=== PATIENT | female | born 1940 | race Caucasian/White ===

== ENCOUNTER → 2016-10-07 | Outpatient (CLI) | payer MEDICARE ==
--- NOTE | 2016-10-07 22:36 | MR ---
EXAMINATION TYPE: MR lumbar spine wo con DATE OF EXAM: 10/07/2016 7:26 PM COMPARISON: NONE HISTORY: Radiculopathy, lumbar region per order. Scoliosis with left thigh and calf pain for a few ye ars per patient. TECHNIQUE: Multiplanar, multisequence imaging of the lumbar spine is performed without IV contrast. FINDINGS: There is dextroconvex scoliosis centered at L2-L3 level. Sagittal images of the lumbar spin e show vertebral body heights to appear satisfactory. There is multilevel disc desiccation with mild to moderate disc space narrowing. There are multilevel small posterior disc herniations on sagittal i mages throughout the lumbar spine. The conus medullaris is normal in position and signal ending at pineda perior L1 vertebral body level. The bone marrow signal intensity is within normal limits. There is m ild to moderate multilevel anterior spurring. Axial images show the T12-L1 level to appear within normal limits. Axial images at the L1-L2 level show moderate broad disc bulge with posterior spurring effacing anter ior thecal sac on axial image 22. Bilateral neural foramina are felt patent. Axial images at L2-L3 level show moderate broad disc bulge effacing anterior thecal sac on axial imag e 17. There is mild facet degenerative changes seen bilaterally effacing the posterior lateral thecal sac. There is some marginal spurring contributing to mild left-sided neural foraminal narrowing. Rig ht-sided neural foramen is patent. Axial images at the L3-L4 level show moderate broad disc bulge effacing the anterior thecal sac. Ther e is mild facet degenerative changes and ligamentum flavum hypertrophy effacing the posterior lateral thecal sac. There is moderate left anterior inferior neural foraminal narrowing identified. Right-si ded neural foramen is patent. Axial images at L4-L5 level show subtle spondylolisthesis or grade 1 anterolisthesis of L4 on L5 with broad-based posterior disc protrusion effacing anterior thecal sac on axial image 8. There is modera te right greater than left facet degenerative changes and ligament flavum hypertrophy effacing the po sterior lateral thecal sac. There is mild to moderate left-sided anterior inferior neural foraminal n arrowing and moderate right-sided anterior inferior neural foraminal narrowing encroaching along infe rior margin of right L4 nerve on sagittal image 14. Axial images at L5-S1 level show mild facet degenerative changes bilaterally. There is broad-based ce ntral disc protrusion mildly effacing the anterior thecal sac. There is mild to moderate right-sided anterior inferior neural foraminal narrowing encroaching along inferior margin of right L5 nerve on s agittal images 12 and 13. Left-sided neural foramen is patent. A thin-walled 1.4 cm cystic lesion in right periaortic level on axial image 29 is uncertain etiology favored benign. There are some simple appearing cysts lower pole level right kidney on axial image 9. IMPRESSION: Dextroconvex scoliosis with multilevel degenerative changes in the lumbar spine seen as d etailed above
== END | disposition home or self-care (01) ==
LOC: RADMRIMAIN 18:40
PROVIDERS: ATTEND Family Medicine
DX: M51.16 Intervertebral disc disorders with radiculopathy, lumbar region (principal); M41.9 Scoliosis, unspecified
CPT/HCPCS: 72148

== ENCOUNTER → 2016-10-09 | Outpatient (CLI) | payer MEDICARE ==
--- NOTE | 2016-10-16 14:46 | P.ARTDOP ---
Arterial Doppler LOWER EXTREMITY ARTERIAL DOPPLER: DATE OF SERVICE: 10/09/2016 Reason for study: Left leg pain. Doppler waveforms: Multiphasic bilaterally throughout. Pulse volume recording: Normal configuration. Pressure gradients: None. Ankle-brachial indices: Greater than 1 bilaterally. Impression: Normal study.
== END | disposition home or self-care (01) ==
LOC: RADUSWWP 14:04
PROVIDERS: ATTEND Family Medicine
DX: M79.605 Pain in left leg (principal)
CPT/HCPCS: 93923

== ENCOUNTER → 2018-06-23 | Outpatient (CLI) | payer MEDICARE ==
--- NOTE | 2018-06-25 08:31 | MM ---
Reason for exam: screening (asymptomatic). Last mammogram was performed 1 year and 1 month ago. History: Patient is postmenopausal. Family history of breast cancer in sister at age 78. Physical Findings: A clinical breast exam by your physician is recommended on an annual basis and results should be correlated with mammographic findings. MG Screening Mammo w CAD Bilateral CC and MLO view(s) were taken. Prior study comparison: May 23, 2017, bilateral MG 3d screening mammo w/cad. April 12, 2016, bilateral MG screening mammo w CAD. The breast tissue is heterogeneously dense. This may lower the sensitivity of mammography. Stable benign secretory calcifications right lateral breast. No significant changes when compared with prior studies. ASSESSMENT: Negative, BI-RAD 1 RECOMMENDATION: Routine screening mammogram of the right breast in 1 year.
== END | disposition home or self-care (01) ==
LOC: RADMAMWWP 14:27
PROVIDERS: ATTEND Family Medicine
DX: Z12.31 Encounter for screening mammogram for malignant neoplasm of breast (principal)
CPT/HCPCS: 77067

== ENCOUNTER 2018-08-26 14:23 | Emergency (ER) | payer MEDICARE ==
[2018-08-26 14:33] VITALS: BP 175/80; PULSE 82; RESP 16; TEMP 97.5
--- NOTE | 2018-08-26 14:47 | ED ---
General Adult HPI <Gómez Parson - Last Filed: 08/26/18 15:47> - General Source: patient, RN notes reviewed Mode of arrival: wheelchair Limitations: no limitations <Nida Cam - Last Filed: 08/26/18 20:25> - General Chief complaint: Extremity Injury, Lower Stated complaint: foot injury Time Seen by Provider: 08/26/18 14:33 - History of Present Illness Initial comments: Patient is a 77-year-old female who presents the emergency department with complaint of right foot pain that happened about 2 hours ago. Patient reported that she stood up from a chair and rolled her foot. She reports being able to walk, but that it was painful. Denies head injury or loss of consciousness. Denies any other injury. Denies any possibility of . Patient denies any recent fever, chills, shortness of breath, chest pain, back pain, abdominal pain, nausea or vomiting, numbness or tingling, headaches or visual changes, or any other complaints. (Nida Cam) - Related Data Home Medications Medication Instructions Recorded Confirmed Acetaminophen Tab [Tylenol Tab] 650 mg PO Q6H PRN 01/05/15 01/09/15 Aspirin 81 mg PO DAILY 01/05/15 01/09/15 Calcium Carbonate/Vitamin D3 1 each PO DAILY 01/05/15 01/09/15 [Calcium 600 + Vit D Tablet] Multivitamins, Thera [Theragran] 1 each PO DAILY 01/05/15 01/09/15 Previous Rx's Medication Instructions Recorded Lidocaine [Lidoderm 5% Patch] 1 patch TRANSDERM DAILY PRN #7 08/26/18 patch Allergies Allergy/AdvReac Type Severity Reaction Status Date / Time cold Allergy HIVES AND Uncoded 08/26/18 14:32 TEMPERATURE DROPS Review of Systems ROS Other: All systems not noted in ROS Statement are negative. <Gómez Parson - Last Filed: 08/26/18 15:47> ROS Other: All systems not noted in ROS Statement are negative. <Nida Cam - Last Filed: 08/26/18 20:25> ROS Statement: Those systems with pertinent positive or pertinent negative responses have been documented in the HPI. Past Medical History Past Medical History: CVA/TIA, Osteoarthritis (OA) Additional Past Medical History / Comment(s): HAS CHRONIC MICROSCOPIC BLOOD IN UA History of Any Multi-Drug Resistant Organisms: None Reported Past Surgical History: Appendectomy, Cholecystectomy, Ear Surgery Past Anesthesia/Blood Transfusion Reactions: No Reported Reaction Past Psychological History: No Psychological Hx Reported Smoking Status: Current every day smoker Past Alcohol Use History: None Reported Past Drug Use History: None Reported - Past Family History Sister(s) Family Medical History: Cancer Additional Family Medical History / Comment(s): BONE,OVARIAN Father Family Medical History: CVA/TIA Brother(s) Family Medical History: Cancer Additional Family Medical History / Comment(s): PROSTATE <Nida Cam - Last Filed: 08/26/18 20:25> General Exam Limitations: no limitations General appearance: alert, in no apparent distress Eye exam: Present: normal appearance Respiratory exam: Present: normal lung sounds bilaterally. Absent: wheezes, rales, rhonchi Cardiovascular Exam: Present: regular rate, normal rhythm Extremities exam: Present: full ROM, tenderness (Right foot.), normal capillary refill, other (DP and PT pulses are palpable and strong bilaterally.) Neurological exam: Present: alert, oriented X3 Skin exam: Present: warm, dry <Nida Cam - Last Filed: 08/26/18 20:25> Course <Gómez Parson - Last Filed: 08/26/18 15:47> <Nida Cam - Last Filed: 08/26/18 20:25> Vital Signs 08/26/18 14:30 Temperature 97.5 F L Pulse Rate 82 Respiratory 16 Rate Blood Pressure 175/80 O2 Sat by Pulse 99 Oximetry - Reevaluation(s) Reevaluation #1: 08/26/18 15:47 PA supervision: I proceeded [id number] evaluation the patient did discuss findings with her. Exam demonstrates evidence of a sprain the dorsal mid lateral aspect of the foot x-ray show no evidence of fracture I do agree with the assessment and plan. Patient is restricted from using Tylenol or NSAID products to her kidney function she is and has been drinking more fluids. I did recommend a Lidoderm patch. She does have at home. (Gómez Parson ) Medical Decision Making <Gómez Parson - Last Filed: 08/26/18 15:47> <Nida Cam Last Filed: 08/26/18 20:25> - Medical Decision Making X-ray of the right foot reveals no acute fracture or dislocation. Case discussed in detail with attending physician Dr. Parson. (Nida Cam) Disposition <Gómez Parson - Last Filed: 08/26/18 15:47> Is patient prescribed a controlled substance at d/c from ED?: No Time of Disposition: 15:46 <Nida Cam - Last Filed: 08/26/18 20:25> Clinical Impression: Foot sprain Disposition: HOME SELF-CARE Condition: Good Instructions (If sedation given, give patient instructions): Foot Sprain (ED) Additional Instructions: Follow-up with your PCP in 1 to 2 days. Return to the emergency department if symptoms worsen or other concerns. Prescriptions: Lidocaine [Lidoderm 5% Patch] 1 patch TRANSDERM DAILY PRN #7 patch PRN Reason: Pain Referrals: Conor Blood DO [Primary Care Provider] - 1-2 days
[2018-08-26] MEDS ORDERED: MORPHINE SULFATE 4 MG/ML SYRINGE IV STA (15:12)
--- NOTE | 2018-08-26 15:21 | XR ---
EXAMINATION TYPE: XR foot complete RT DATE OF EXAM: 08/26/2018 COMPARISON: NONE HISTORY: 77-year-old female with pain TECHNIQUE: 3 views FINDINGS: Incidental Suero's toe. Small plantar calcaneal spur. Small delineation to the Achilles tendon. No a cute fracture, subluxation, or dislocation is seen. IMPRESSION: Suero's toe. Small plantar calcaneal spur. No acute osseous abnormality seen.
[2018-08-26] MEDS ORDERED: MORPHINE SULFATE 2 MG/ML SYRINGE IM STA (15:59)
== END 2018-08-26 16:05 | disposition home or self-care (01) ==
LOC: EC 14:23
DX: S93.601A Unspecified sprain of right foot, initial encounter (principal); F17.200 Nicotine dependence, unspecified, uncomplicated; Z86.73 Personal history of transient ischemic attack (TIA), and cerebral infarction without residual deficits; Z90.49 Acquired absence of other specified parts of digestive tract; Z79.82 Long term (current) use of aspirin; Z91.048 Other nonmedicinal substance allergy status; X50.1XXA Overexertion from prolonged static or awkward postures, initial encounter; W18.39XA Other fall on same level, initial encounter
CPT/HCPCS: 99283

== ENCOUNTER → 2018-12-25 | Outpatient (CLI) | payer MEDICARE ==
--- NOTE | 2018-12-25 08:06 | US ---
EXAMINATION TYPE: US abdomen comp/pelvis limited DATE OF EXAM: 12/25/2018 COMPARISON: US 2010 CLINICAL HISTORY: N18.3 chronic kidney disease, stage 3; ectatic aorta; gallbladder surgically remove d EXAM MEASUREMENTS: Liver Length: 12.0 cm Gallbladder Wall: surgically removed CBD: 0.5 cm Spleen: 7.6 cm Right Kidney: 9.7 x 5.9 x 3.5 cm Left Kidney: 9.1 x 5.2 x 4.6 cm Post Void Residual: 1.6 mL Pancreas: wnl Liver: wnl Gallbladder: surgically absent CBD: wnl Spleen: wnl Right Kidney: multiple renal cysts with largest simple cyst inferior cortex = 2.2 x 2.1 x 2.1cm Left Kidney: No hydronephrosis or masses seen and was scanned supinely. Upper IVC: wnl Abd Aorta: irregular intimal wall changes noted throughout with widening at mid distal aorta =3.0 x 3.1 x 3.1cm Bladder: wnl Bilateral Jets Seen yes Normal Post Void Residual (normal less than 50ml) yes Visualized pancreas appears within normal limits. There is aneurysm of the mid abdominal aorta now me asuring up to 3.0 cm AP diameter increased from 2010 study, distal abdominal aorta measures up to 3.1 cm transversely also increased from prior. 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 Visualized liver is felt within normal limits. Right kidney shows simple appearing 2.1 cm cyst lower pole level and few s maller scattered cysts. Gallbladder is surgically absent. Bladder shows no intraluminal mass or wall thickening. Bilateral distal ureteric jets are seen. Patient nearly completely empties the bladder on voiding. Spleen is normal in size. Left kidney shows no hydronephrosis. IMPRESSION: No hydronephrosis is evident bilaterally. AAA up to 3.1 cm transversely distal aspect is now present.
== END | disposition home or self-care (01) ==
LOC: RADUSWWP 06:52
PROVIDERS: ATTEND Family Medicine
DX: I71.4 Abdominal aortic aneurysm, without rupture (principal); N18.3 Chronic kidney disease, stage 3 (moderate)
CPT/HCPCS: 76700; 76857

== ENCOUNTER → 2019-07-16 | Outpatient (CLI) | payer MEDICARE ==
--- NOTE | 2019-07-23 09:51 | MM ---
Reason for exam: screening (asymptomatic). Last mammogram was performed 1 year and 1 month ago. History: Patient is postmenopausal. Family history of breast cancer in sister at age 78. Physical Findings: A clinical breast exam by your physician is recommended on an annual basis and results should be correlated with mammographic findings. MG 3D Screening Mammo W/Cad Bilateral CC and MLO view(s) were taken. Prior study comparison: June 23, 2018, bilateral MG screening mammo w CAD. May 23, 2017, bilateral MG 3d screening mammo w/cad. The breast tissue is heterogeneously dense. This may lower the sensitivity of mammography. Stable benign secretory calcifications on the right. No significant changes when compared with prior studies. ASSESSMENT: Benign, BI-RAD 2 RECOMMENDATION: Routine screening mammogram of both breasts in 1 year.
== END | disposition home or self-care (01) ==
LOC: RADMAMWWP 16:41
PROVIDERS: ATTEND Family Medicine
DX: Z12.31 Encounter for screening mammogram for malignant neoplasm of breast (principal)
CPT/HCPCS: 77063; 77067

== ENCOUNTER 2020-09-14 09:26 | Day surgery (SDC) | payer MEDICARE ==
[2020-09-13 12:51] VITALS: BMI 18.4
[~2020-09-14 09:26] MED LIST: LACTATED RINGERS 1,000 ML IV SCH
[2020-09-14 09:48] VITALS: RESP 16; TEMP 97.5
[2020-09-14] MEDS ORDERED: PROPOFOL 10 MG/ML 20 ML VIAL IV ONE (10:54)
--- NOTE | 2020-09-14 11:15 | P.PCN ---
Date of Procedure: 09/14/20 Procedure(s) Performed: BRIEF HISTORY: Patient is a 79-year-old pleasant white female scheduled for an elective colonoscopy as a part of evaluation of chronic diarrhea for the last 2 months duration. She lost 90 pounds since his symptoms. She usually has 3-4 loose bowel movements daily. No active bleeding. PROCEDURE PERFORMED: Colonoscopy with random biopsies and snare polypectomy. PREOPERATIVE DIAGNOSIS: Chronic diarrhea and progressive weight loss of 3 months duration. IV sedation per Anesthesia. PROCEDURE: After informed consent was obtained, the patient, was brought into the endoscopy unit. IV sedation was administered by Anesthesia under continuous monitoring. Digital rectal examination was normal. Initially the Olympus CF-160 flexible video colonoscope was then inserted in the rectum, gradually advanced into the cecum without any difficulty. Careful examination was performed as the scope was gradually being withdrawn. Ileocecal valve and the appendiceal orifice were visualized and appeared normal. Prep was excellent. Mucosa of the cecum, ascending colon, transverse colon, descending colon, sigmoid colon, appeared normal. Random biopsies were done from ascending and descending colon to rule out microscopic/collagenous colitis. In the distal rectum there were 2 polyps m easuring 5 mm and 1 cm in size both of which were removed by snare polypectomy. Retroflexion was performed in the rectum and no lesions were seen. The patient tolerated the procedure well. IMPRESSION: 5 mm and 1 cm distal rectal polyp status post polypectomy Rest of the colon appeared normal RECOMMENDATIONS: Findings of this examination were discussed with the patient as well as a family. She was advised to follow with the biopsy results. If the biopsy shows an adenoma she can have a repeat colonoscopy in 3 years. In regards to the diarrhea will await biopsy results in the meantime she was advised to use [id number] Imodium as needed..
[2020-09-14 11:54] VITALS: BP 168/72; PULSE 86
== END 2020-09-14 12:18 | disposition home or self-care (01) ==
LOC: ORWHC2ENDO 09:26
PROVIDERS: ATTEND Internal Medicine Gastroenterology
DX: K52.832 Lymphocytic colitis (principal); K62.1 Rectal polyp; N18.9 Chronic kidney disease, unspecified; M19.90 Unspecified osteoarthritis, unspecified site; Z97.2 Presence of dental prosthetic device (complete) (partial); Z91.09 Other allergy status, other than to drugs and biological substances; Z86.73 Personal history of transient ischemic attack (TIA), and cerebral infarction without residual deficits; Z79.899 Other long term (current) drug therapy; Z79.82 Long term (current) use of aspirin; Z87.898 Personal history of other specified conditions
CPT/HCPCS: 88305; 45380; 45385; J2704

== ENCOUNTER → 2020-09-19 | Outpatient (CLI) | payer MEDICARE ==
--- NOTE | 2020-09-19 15:59 | US ---
EXAMINATION TYPE: US kidneys/renal and bladder DATE OF EXAM: 09/19/2020 COMPARISON: US CLINICAL HISTORY: N18.3 chronic kidney disease stage 3. CKD EXAM MEASUREMENTS: Right Kidney: 10.6 x 3.4 x 4.2 cm Left Kidney: 8.5 x 3.9 x 4.2 cm Post Void Residual Volume: 40 mL Right Kidney: Multicystic, largest cyst measured lower pole= 2.3 x 2.6 x 2.6 cm Left Kidney: Small in size, cortical thinning Bladder: wnl Bilateral Jets seen: Only right jet visualized Normal Post Void Residual: Yes There is no evidence for hydronephrosis at this point in time. Increased cortical echogenicity bilate rally. No nephrolithiasis is seen. There is 2.6 cm thin-walled cyst lower pole of the right kidney. The urinary bladder is satisfactorily distended. Bilateral ureteral jets are not seen. IMPRESSION: No hydronephrosis is seen bilaterally.
== END | disposition home or self-care (01) ==
LOC: RADUSWWP 15:22
PROVIDERS: ATTEND Family Medicine
DX: N18.30 Chronic kidney disease, stage 3 unspecified (principal)
CPT/HCPCS: 76770

== ENCOUNTER 2020-10-25 10:32 | Inpatient (IN) | payer MEDICARE ==
[2020-10-25] MEDS ORDERED: NITROGLYCERIN OINT 1 INCH/GM PACKET TOPICAL STA (10:54)
[2020-10-25] MEDS ORDERED: ASPIRIN 81 MG PO STA (10:54)
--- NOTE | 2020-10-25 11:16 | XR ---
EXAMINATION TYPE: XR chest 2V DATE OF EXAM: 10/25/2020 COMPARISON: None INDICATION: Chest pain TECHNIQUE: Frontal and lateral views of the chest are obtained. FINDINGS: The heart size is normal. The pulmonary vasculature is normal. Bilateral apical thickening is present. Follow-up evaluation for stability is recommended. There is hyperinflation flattening the diaphragms compatible with COPD. IMPRESSION: 1. Bilateral lung apical thickening. Follow-up exam in 3-6 months is recommended to confirm stability over the course of 2 years. 2. Hyperinflation. Correlate for COPD
--- NOTE | 2020-10-25 11:22 | ED ---
General Adult HPI - General Chief complaint: Chest Pain Stated complaint: Chest pain/nausea/dry heaves Time Seen by Provider: 10/25/20 10:35 Source: patient, RN notes reviewed, old records reviewed Mode of arrival: ambulatory Limitations: no limitations - History of Present Illness Initial comments: This is a 79-year-old female presents emergency department stating that she felt like she had a bowel movement so she sat on the toilet and then became very nauseated started dry heaves. Patient states she broke out in a sweat and became extremely weak to the point where she could not get up off the toilet by herself. Patient states she had no chest pain difficulty breathing shortness of breath. Patient states currently she feels considerably better. Patient states however she has been having chest pain over the last week quite frequently. Pat ient states she has about a 10 minute episode of anterior chest pain which goes from shoulder to shoulder and is associated with shortness of breath. Patient denies any recent fever chills or cough. Patient denies any headache patient denies numbness or focal weakness - Related Data Home Medications Medication Instructions Recorded Confirmed Acetaminophen Tab [Tylenol Tab] 650 mg PO Q6H PRN 01/05/15 10/25/20 Aspirin 81 mg PO DAILY 01/05/15 10/25/20 Calcium Carbonate/Vitamin D3 1 tab PO DAILY 01/05/15 10/25/20 [Calcium 600 + Vit D Tablet] Multivitamins, Thera [Theragran] 1 tab PO DAILY 01/05/15 10/25/20 Cholecalciferol [Vitamin D3 (25 50 mcg PO DAILY 09/13/20 10/25/20 Mcg = 1000 Iu)] Melatonin 5 mg PO HS PRN 09/13/20 10/25/20 Allergies Allergy/AdvReac Type Severity Reaction Status Date / Time cold AdvReac HIVES AND Uncoded 10/25/20 12:42 TEMPERATURE DROPS Review of Systems ROS Statement: Those systems with pertinent positive or pertinent negative responses have been documented in the HPI. ROS Other: All systems not noted in ROS Statement are negative. Past Medical History Past Medical History: CVA/TIA, Osteoarthritis (OA) Additional Past Medical History / Comment(s): HAS CHRONIC MICROSCOPIC BLOOD IN UA, TIA , CHRONIC KIDNEY DISEASE, DR PARRA, AAA History of Any Multi-Drug Resistant Organisms: None Reported Past Surgical History: Appendectomy, Cholecystectomy, Ear Surgery Past Anesthesia/Blood Transfusion Reactions: No Reported Reaction, Motion Sickness Past Psychological History: No Psychological Hx Reported Smoking Status: Current every day smoker Past Alcohol Use History: None Reported Past Drug Use History: None Reported - Past Family History Sister(s) Family Medical History: Cancer Additional Family Medical History / Comment(s): BONE,OVARIAN Father Family Medical History: CVA/TIA Brother(s) Family Medical History: Cancer Additional Family Medical History / Comment(s): PROSTATE General Exam - General Exam Comments Initial Comments: GENERAL: Patient is well-developed and well-nourished. Patient is nontoxic and well- hydrated and is in mild distress. ENT: Neck is soft and supple. No significant lymphadenopathy is noted. Oropharynx is clear. Moist mucous membranes. Neck has full range of motion without ramos citing any pain. EYES: The sclera were anicteric and conjunctiva were pink and moist. Extraocular movements were intact and pupils were equal round and reactive to light. Eyelids were unremarkable. PULMONARY: Unlabored respirations. Good breath sounds bilaterally. No audible rales rhonchi or wheezing was noted. CARDIOVASCULAR: There is a regular rate and rhythm without any murmurs gallops or rubs. ABDOMEN: Soft and nontender with normal bowel sounds. SKIN: Skin is clear with no lesions or rashes and otherwise unremarkable. NEUROLOGIC: Patient is alert and oriented x3. Cranial nerves II through XII are grossly intact. Motor and sensory are also intact. Normal speech, volume and content. Symmetrical smile. MUSCULOSKELETAL: Normal extremities with adequate strength and full range of motion. No lower extremity swelling or edema. No calf tenderness. LYMPHATICS: No significant lymphadenopathy is noted PSYCHIATRIC: Normal psychiatric evaluation. 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 Patient's EKG shows ST segment depression in precordial leads V4 V5 and V6. Chest x-ray is consistent with COPD. I started the patient heparin because troponin was elevated and the patient was having a non-STEMI. I spoke with cardiology. I spoke with [facility] hospitalist and he agreed to admit the patient admitted the patient wrote admitting orders Second EKG was done on this patient it showed normal sinus rhythm at 86 bpm [place] interval is on a 48 QRSs 80 QT interval 394 QTC is 471. - Lab Data Result diagrams: 10/25/20 11:05 10/25/20 11:05 Lab Results 10/25/20 10/25/20 10/25/20 Range/Units 11:05 11:05 11:05 WBC 6.0 (3.8-10.6) k/uL RBC 4.24 (3.80-5.40) m/uL Hgb 14.1 (11.4-16.0) gm/dL Hct 41.9 (34.0-46.0) % MCV 99.0 (80.0-100.0) fL MCH 33.2 (25.0-35.0) pg MCHC 33.6 (31.0-37.0) g/dL RDW 12.8 (11.5-15.5) % Plt Count 179 (150-450) k/uL MPV 8.1 Neutrophils % 73 % Lymphocytes % 20 % Monocytes % 5 % Eosinophils % 0 % Basophils % 0 % Neutrophils # 4.4 (1.3-7.7) k/uL Lymphocytes # 1.2 (1.0-4.8) k/uL Monocytes # 0.3 (0-1.0) k/uL Eosinophils # 0.0 (0-0.7) k/uL Basophils # 0.0 (0-0.2) k/uL PT 9.5 (9.0-12.0) sec INR 0.9 (<1.2) APTT 19.1 L (22.0-30.0) sec Sodium 136 L (137-145) mmol/L Potassium 4.0 (3.5-5.1) mmol/L Chloride 102 (98-107) mmol/L Carbon Dioxide 25 (22-30) mmol/L Anion Gap 9 mmol/L BUN 30 H (7-17) mg/dL Creatinine 1.40 H (0.52-1.04) mg/dL Est GFR (CKD-EPI)AfAm 42 (>60 ml/min/1.73 sqM) Est GFR (CKD-EPI)NonAf 36 (>60 ml/min/1.73 sqM) Glucose 122 H (74-99) mg/dL Calcium 9.8 (8.4-10.2) mg/dL Magnesium 2.2 (1.6-2.3) mg/dL Total Bilirubin 0.5 (0.2-1.3) mg/dL AST 38 H (14-36) U/L ALT 17 (4-34) U/L Alkaline Phosphatase 89 (38-126) U/L Troponin I (0.000-0.034) ng/mL Total Protein 7.6 (6.3-8.2) g/dL Albumin 4.7 (3.5-5.0) g/dL 10/25/20 Range/Units 11:05 WBC (3.8-10.6) k/uL RBC (3.80-5.40) m/uL Hgb (11.4-16.0) gm/dL Hct (34.0-46.0) % MCV (80.0-100.0) fL MCH (25.0-35.0) pg MCHC (31.0-37.0) g/dL RDW (11.5-15.5) % Plt Count (150-450) k/uL MPV Neutrophils % % Lymphocytes % % Monocytes % % Eosinophils % % Basophils % % Neutrophils # (1.3-7.7) k/uL Lymphocytes # (1.0-4.8) k/uL Monocytes # (0-1.0) k/uL Eosinophils # (0-0.7) k/uL Basophils # (0-0.2) k/uL PT (9.0-12.0) sec INR (<1.2) APTT (22.0-30.0) sec Sodium (137-145) mmol/L Potassium (3.5-5.1) mmol/L Chloride (98-107) mmol/L Carbon Dioxide (22-30) mmol/L Anion Gap mmol/L BUN (7-17) mg/dL Creatinine (0.52-1.04) mg/dL Est GFR (CKD-EPI)AfAm (>60 ml/min/1.73 sqM) Est GFR (CKD-EPI)NonAf (>60 ml/min/1.73 sqM) Glucose (74-99) mg/dL Calcium (8.4-10.2) mg/dL Magnesium (1.6-2.3) mg/dL Total Bilirubin (0.2-1.3) mg/dL AST (14-36) U/L ALT (4-34) U/L Alkaline Phosphatase (38-126) U/L Troponin I 2.130 H* (0.000-0.034) ng/mL Total Protein (6.3-8.2) g/dL Albumin (3.5-5.0) g/dL Critical Care Time Critical Care Time: Yes Total Critical Care Time: 35 Disposition Clinical Impression: Acute non-ST elevation myocardial infarction (NSTEMI) Disposition: ADMITTED IP TO THIS HOSP Referrals: Conor Parra DO [Primary Care Provider] - 1-2 days Time of Disposition: 13:24
[2020-10-25 11:29] LABS: Basophils % (A) 0 %; Eosinophils % (A) 0 %; HCT 41.9 % (34.0-46.0); HGB 14.1 gm/dL (11.4-16.0); Lymphocytes # (A) 1.2 k/uL (1.0-4.8); Lymphocytes % (A) 20 %; MCH 33.2 pg (25.0-35.0); MCHC 33.6 g/dL (31.0-37.0); Mean Platelet Volume 8.1; Monocytes # (A) 0.3 k/uL (0-1.0); Monocytes % (A) 5 %; Neutrophils # (A) 4.4 k/uL (1.3-7.7); Neutrophils % (A) 73 %; Platelet Count 179 k/uL (150-450); RBC 4.24 m/uL (3.80-5.40); RDW 12.8 % (11.5-15.5)
[2020-10-25 11:40] LABS: Albumin 4.7 g/dL (3.5-5.0); Calcium 9.8 mg/dL (8.4-10.2); Magnesium 2.2 mg/dL (1.6-2.3); Total Bilirubin 0.5 mg/dL (0.2-1.3); Total Protein 7.6 g/dL (6.3-8.2)
[2020-10-25 11:50] LABS: INR 0.9 (<1.2); Prothrombin Time 9.5 sec (9.0-12.0)
[2020-10-25 11:57] LABS: Partial Thromboplastin Time 19.1 sec (22.0-30.0)
[2020-10-25] MEDS ORDERED: HEPARIN SODIUM,PORCINE 5,000 UNIT/ML 1 ML VIAL IV ONE (13:25)
[2020-10-25] MEDS ORDERED: NITROGLYCERIN SL TABS 0.4 MG TAB SUBLINGUAL PRN (13:26)
[2020-10-25] MEDS ORDERED: HEPARIN SOD,PORK IN 0.45% NACL 25,000 UNIT in 0.45% NACL 1 250ML.BAG IV SCH (13:30)
[2020-10-25] MEDS ORDERED: SODIUM CHLORIDE 0.9% 500 ML 500 ML IV ONE (13:34)
[2020-10-25] MEDS: SODIUM CHLORIDE 0.9% 1,000 ML IV SCH ×2 (14:06→20:58)
[2020-10-25] MEDS ORDERED: ALPRAZolam 0.25 MG TAB PO PRN (14:11)
[2020-10-25] MEDS ORDERED: ATORVASTATIN 80 MG TAB PO STA (14:11)
[2020-10-25] MEDS ORDERED: ALPRAZolam 0.5 MG TAB PO PRN (14:11)
--- NOTE | 2020-10-25 14:19 | P.HPIM ---
History of Present Illness 79-year-old pleasant female came in with compensative chest pressure like sensation on exertion which started today morning across the chest with some nausea and dry heaving and the mild diaphoresis. Patient denied any significant shortness of breath or patient pain lasted for about 10 minutes moderate across the chest showed from shoulder to shoulder denied any fever chills not associated with food nonpleuritic denied any headache. Patient is found to have some and depressions in anterio atrial leads. Patient never had any cardiac workup in the past patient had a similar episode 2 years ago patient had elevated troponin of 2.13. Cardiology is evaluating the patient. Patient has creatinine of 1.4 baseline is not available at this time. Review of Systems REVIEW OF SYSTEMS: CONSTITUTIONAL: No fever, no malaise, no fatigue. HEENT: No recent visual problems or hearing problems. Denied any sore throat. CARDIOVASCULAR: No orthopnea, PND, no palpitations, no syncope. PULMONARY: no cough, no hemoptysis. GASTROINTESTINAL: No diarrhea, no nausea, no vomiting, no abdominal pain. NEUROLOGICAL: No headaches, no weakness, no numbness. HEMATOLOGICAL: Denies any bleeding or petechiae. GENITOURINARY: Denies any burning micturition, frequency, or urgency. MUSCULOSKELETAL/RHEUMATOLOGICAL: Denies any joint pain, swelling, or any muscle pain. ENDOCRINE: Denies any polyuria or polydipsia. The rest of the 14-point review of systems is negative. Past Medical History Past Medical History: CVA/TIA, Osteoarthritis (OA) Additional Past Medical History / Comment(s): HAS CHRONIC MICROSCOPIC BLOOD IN UA, TIA , CHRONIC KIDNEY DISEASE, DR PARRA, [place] History of Any Multi-Drug Resistant Organisms: None Reported Past Surgical History: Appendectomy, Cholecystectomy, Ear Surgery Past Anesthesia/Blood Transfusion Reactions: No Reported Reaction, Motion Sickness Past Psychological History: No Psychological Hx Reported Smoking Status: Current every day smoker Past Alcohol Use History: None Reported Past Drug Use History: None Reported - Past Family History Sister(s) Family Medical History: Cancer Additional Family Medical History / Comment(s): BONE,OVARIAN Father Family Medical History: CVA/TIA Brother(s) Family Medical History: Cancer Additional Family Medical History / Comment(s): PROSTATE Medications and Allergies Home Medications Medication Instructions Recorded Confirmed Type Acetaminophen Tab [Tylenol Tab] 650 mg PO Q6H PRN 01/05/15 10/25/20 History Aspirin 81 mg PO DAILY 01/05/15 10/25/20 History Calcium Carbonate/Vitamin D3 1 tab PO DAILY 01/05/15 10/25/20 History [Calcium 600 + Vit D Tablet] Multivitamins, Thera [Theragran] 1 tab PO DAILY 01/05/15 10/25/20 History Cholecalciferol [Vitamin D3 (25 50 mcg PO DAILY 09/13/20 10/25/20 History Mcg = 1000 Iu)] Melatonin 5 mg PO HS PRN 09/13/20 10/25/20 History Allergies Allergy/AdvReac Type Severity Reaction Status Date / Time cold AdvReac HIVES AND Uncoded 10/25/20 12:42 TEMPERATURE DROPS Physical Exam Vitals: Vital Signs Temp Pulse Pulse Resp BP Pulse Ox 10/25/20 12:37 89 16 142/72 99 10/25/20 11:16 86 18 146/76 97 10/25/20 10:49 89 16 10/25/20 10:35 98.0 F 103 H 16 151/76 99 Intake and Output 10/24/20 10/25/20 10/25/20 22:59 06:59 14:59 Other: Weight 46.266 kg PHYSICAL EXAMINATION: GENERAL: The patient is alert and oriented x3, not in any acute distress. Thin built female HEENT: Pupils are round and equally reacting to light. EOMI. No scleral icterus. No conjunctival pallor. Normocephalic, atraumatic. No pharyngeal erythema. No thyromegaly. CARDIOVASCULAR: S1 and S2 present. No murmurs, rubs, or gallops. PULMONARY: Chest is clear to auscultation, no wheezing or crackles. ABDOMEN: Soft, nontender, nondistended, normoactive bowel sounds. No palpable organomegaly. MUSCULOSKELETAL: No joint swelling or deformity. EXTREMITIES: No cyanosis, clubbing, or pedal edema. NEUROLOGICAL: Gross neurological examination did not reveal any focal deficits. SKIN: No rashes. Results CBC & Chem 7: 10/25/20 11:05 10/25/20 11:05 Labs: Abnormal Lab Results - Last 24 Hours (Table) 10/25/20 10/25/20 10/25/20 Range/Units 11:05 11:05 11:05 APTT 19.1 L (22.0-30.0) sec Sodium 136 L (137-145) mmol/L BUN 30 H (7-17) mg/dL Creatinine 1.40 H (0.52-1.04) mg/dL Glucose 122 H (74-99) mg/dL AST 38 H (14-36) U/L Troponin I 2.130 H* (0.000-0.034) ng/mL Assessment and Plan Plan: Acute non-ST elevation myocardial infarction: Patient was IV heparin patient will be ordered by cardiology patient probably will undergo cardiac catheterization either today or tomorrow. lipid panel will be obtained. Patient was started on statin and antiplatelet medications as well. -Renal failure unknown whether patient has acute renal failure chronic kidney disease baseline is not available. She was onIVfluids - nicotine use: Counseling was provided
[2020-10-25] MEDS ORDERED: LIDOCAINE 1% INJ 10MG/ML (20 ML MDV) ONE (14:20)
--- NOTE | 2020-10-25 14:25 | P.CRDCN ---
History of Present Illness History of present illness: HISTORY OF PRESENTING ILLNESS This is a pleasant 79-year-old female past medical history significant for chronic kidney disease and chronic nicotine dependence. 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 We have been asked to see in consultation for chest pain and abnormal troponins. She states for the previous one and half week she has been experiencing intermittent episodes of chest tightness. The discomfort has happened about 5 or 6 times intermittently with nonspecific aggravating factor. She states it occurs while she is sitting down at rest. It radiates across her chest from left to right axilla. It last for approximately 5 minutes and subsides on its own. There is no radiation to the arm, back, neck or jaw. She has no associated symptoms and she has the chest tightness. Also in the previous couple of days she has had 2 episodes where she becomes dizzy. Specifically this morning she woke up and was starting to get ready for work when she started becoming acutely lightheaded and weak. She was in the bathroom and had to sit down and leaning on the counter. She states she was so weak that she felt like she needed to sit down on the floor. She became extremely diaphoretic and nauseated. During this episode she had no specific symptoms of chest discomfort or palpitations. Her granddaughter assisted her to the couch where she lay down and slept for a couple of hours. She woke up the patient wanted to continue with [employer] go to work however her granddaughter insisted she: In the hospital for evaluation. She is currently chest pain-free. DIAGNOSTICS EKG reveals sinus mechanism heart rate of [address] abnormalities noted in the anterior lateral leads. Chest xray bilateral apical lung thickening and hyperinflation. Laboratory reviewed, CBC unremarkable, sodium 136, potassium 4.0, creatinine 1.4 with GFR of 36, magnesium 2.2 and troponin 2.13. She takes no daily prescription cardiac medications. She takes a daily aspirin 81 mg. She has never had a stress test or echocardiogram before. REVIEW OF SYSTEMS At the time of my exam: CONSTITUTIONAL: Denies fever or chills. CARDIOVASCULAR: Denies chest pain, shortness of breath, orthopnea, PND or palpitations. RESPIRATORY: Denies cough. GASTROINTESTINAL: Denies abdominal pain, diarrhea, constipation, nausea or vomiting. MUSCULOSKELETAL: Denies myalgias. NEUROLOGIC: Denies numbness, tingling, headacbe or weakness. ENDOCRINE: Denies fatigue, weight change, polydipsia or polyurina. GENITOURINARY: Denies burning, hematuria or urgency with micturation. HEMATOLOGIC: Denies history of anemia or bleeding. PHYSICAL EXAMINATION Blood pressure 142/72 heart rate 89 afebrile and maintaining oxygen saturation on room air. CONSTITUTIONAL: No apparent distress. Frail. HEENT: Head is normocephalic. Pupils are equal, round. Sclerae anicteric. Mucous membranes of the mouth are moist. No JVD. Bilateral carotid bruit, R>L. CHEST EXAMINATION: Lungs are clear to auscultation. No chest wall tenderness is noted on palpation or with deep breathing. HEART EXAMINATION: Regular rate and rhythm. S1, S2 heard. Systolic ejection murmur at the base, no gallops or rub. ABDOMEN: Soft, nontender. Positive bowel sounds. EXTREMITIES: 2+ peripheral pulses, no lower extremity edema and no calf tenderness. NEUROLOGIC EXAMINATION: Patient is awake, alert and oriented x3. ASSESSMENT NSTEMI Possible arrhythmia Chronic kidney disease Chronic nicotine dependence PLAN Recommend proceeding with cardiac catheterization to assess for underlying coronary artery disease. I have discussed the risks, benefits and alternative therapies for the above-mentioned procedure and for both sedation/analgesia as well as necessary blood product administration, if indicated, as they pertain to this patient. The patient has indicated understanding and acceptance of the risks and procedures discussed. Questions have been answered appropriately and she is agreeable to move forward with the above stated procedure. Initiate hydration prior to procedure. Obtain 2D echocardiogram and doppler study to assess cardiac structure and funct ion. Check lipid panel. Further recommendations to follow based on clinical course. Thank you kindly for this consultation. Nurse Practitioner note has been reviewed, I agree with a documented findings and plan of care. Patient was seen and examined. Past Medical History Past Medical History: CVA/TIA, Osteoarthritis (OA) Additional Past Medical History / Comment(s): HAS CHRONIC MICROSCOPIC BLOOD IN UA, TIA , CHRONIC KIDNEY DISEASE, DR PARRA, [place] History of Any Multi-Drug Resistant Organisms: None Reported Past Surgical History: Appendectomy, Cholecystectomy, Ear Surgery Past Anesthesia/Blood Transfusion Reactions: No Reported Reaction, Motion Sickness Past Psychological History: No Psychological Hx Reported Smoking Status: Current every day smoker Past Alcohol Use History: None Reported Past Drug Use History: None Reported - Past Family History Sister(s) Family Medical History: Cancer Additional Family Medical History / Comment(s): BONE,OVARIAN Father Family Medical History: CVA/TIA Brother(s) Family Medical History: Cancer Additional Family Medical History / Comment(s): PROSTATE Medications and Allergies Home Medications Medication Instructions Recorded Confirmed Type Acetaminophen Tab [Tylenol Tab] 650 mg PO Q6H PRN 01/05/15 10/25/20 History Aspirin 81 mg PO DAILY 01/05/15 10/25/20 History Calcium Carbonate/Vitamin D3 1 tab PO DAILY 01/05/15 10/25/20 History [Calcium 600 + Vit D Tablet] Multivitamins, Thera [Theragran] 1 tab PO DAILY 01/05/15 10/25/20 History Cholecalciferol [Vitamin D3 (25 50 mcg PO DAILY 09/13/20 10/25/20 History Mcg = 1000 Iu)] Melatonin 5 mg PO HS PRN 09/13/20 10/25/20 History Allergies Allergy/AdvReac Type Severity Reaction Status Date / Time cold AdvReac HIVES AND Uncoded 10/25/20 12:42 TEMPERATURE DROPS Physical Exam Vitals: Vital Signs Temp Pulse Pulse Resp BP Pulse Ox 10/25/20 12:37 89 16 142/72 99 10/25/20 11:16 86 18 146/76 97 10/25/20 10:49 89 16 10/25/20 10:35 98.0 F 103 H 16 151/76 99 Intake and Output 10/24/20 10/25/20 10/25/20 22:59 06:59 14:59 Other: Weight 46.266 kg Results 10/25/20 11:05 10/25/20 11:05 Cardiac Enzymes 10/25/20 10/25/20 Range/Units 11:05 11:05 AST 38 H (14-36) U/L Troponin I 2.130 H* (0.000-0.034) ng/mL Coagulation 10/25/20 Range/Units 11:05 PT 9.5 (9.0-12.0) sec APTT 19.1 L (22.0-30.0) sec CBC 10/25/20 Range/Units 11:05 WBC 6.0 (3.8-10.6) k/uL RBC 4.24 (3.80-5.40) m/uL Hgb 14.1 (11.4-16.0) gm/dL Hct 41.9 (34.0-46.0) % Plt Count 179 (150-450) k/uL Comprehensive Metabolic Panel 10/25/20 Range/Units 11:05 Sodium 136 L (137-145) mmol/L Potassium 4.0 (3.5-5.1) mmol/L Chloride 102 (98-107) mmol/L Carbon Dioxide 25 (22-30) mmol/L BUN 30 H (7-17) mg/dL Creatinine 1.40 H (0.52-1.04) mg/dL Glucose 122 H (74-99) mg/dL Calcium 9.8 (8.4-10.2) mg/dL AST 38 H (14-36) U/L ALT 17 (4-34) U/L Alkaline Phosphatase 89 (38-126) U/L Total Protein 7.6 (6.3-8.2) g/dL Albumin 4.7 (3.5-5.0) g/dL Current Medications Generic Name Dose Route Start Last Admin Trade Name Freq PRN Reason Stop Dose Admin Aspirin 325 mg 10/26/20 09:00 Aspirin 325 Mg Tab PO DAILY WES Heparin Sodium/Sodium Chloride 250 mls @ 5.552 mls/hr 10/25/20 13:30 10/25/20 14:06 25,000 unit/ Sodium Chloride IV 12 units/kg/hr .Q24H WES 5.552 mls/hr Administration Protocol 12 UNITS/KG/HR Sodium Chloride 1,000 mls @ 100 mls/hr 10/25/20 14:15 10/25/20 14:06 Saline 0.9% IV 100 mls/hr .Q10H WES Administration Nitroglycerin 0.4 mg 10/25/20 13:26 Nitroglycerin Sl Tabs 0.4 Mg Tab SUBLINGUAL Q5M PRN Chest Pain Nitroglycerin 1 inch 10/25/20 18:00 Nitroglycerin Oint 1 Inch/Gm Packet TOPICAL Q6HR WES Intake and Output 10/24/20 10/25/20 10/25/20 22:59 06:59 14:59 Other: Weight 46.266 kg Patient Weight 10/26/20 06:59 Weight 46.266 kg 10/25/20 11:05 10/25/20 11:05
[2020-10-25] MEDS ORDERED: IV FLUID CONTINUATION 1,000 ML IV ONE (14:49)
[2020-10-25] MEDS ORDERED: fentaNYL (PF) 50 MCG/ML 2 ML AMP ONE (15:03)
[2020-10-25] MEDS ORDERED: MIDAZOLAM 2 MG/2 ML VIAL IVP ONE ×2 (15:06→16:18)
[2020-10-25] MEDS ORDERED: fentaNYL (PF) 50 MCG/ML 2 ML AMP IVP ONE ×2 (15:06→16:40)
[2020-10-25] MEDS ORDERED: LIDOCAINE 1% INJ 10MG/ML (20 ML MDV) SQ ONE (15:08)
[2020-10-25] MEDS ORDERED: HEPARIN SODIUM 1,000 UN/ML (10ML VL) IV ONE (16:29)
[2020-10-25] MEDS ORDERED: NITROGLYCERIN SL TABS 0.4 MG TAB SUBLINGUAL ONE ×2 (16:37→16:39)
[2020-10-25] MEDS ORDERED: METOPROLOL TARTRATE 5 MG/5 ML VIAL IVP ONE ×3 (16:37→16:41)
[2020-10-25] MEDS ORDERED: IOPAMIDOL-370 125ML BTL INJ ONE (16:46)
[2020-10-25] MEDS ORDERED: METOPROLOL TARTRATE 50 MG TAB PO STA (16:54)
[2020-10-25] MEDS ORDERED: NITROGLYCERIN-D5W PMX 50 MG in DEXTROSE/WATER 1 250ML.BAG IV SCH (17:00)
[2020-10-25] MEDS ORDERED: NITROGLYCERIN-D5W PMX 50 MG in DEXTROSE/WATER 1 250ML.BAG IV ONE (17:03)
[2020-10-25] MEDS ORDERED: RX INFO: IV CONTRAST WAS GIVEN 1 EACH MISC MISCELLANE PRN (17:04)
[2020-10-25 17:33] LABS: Glucose,Whole Blood 100 mg/dL (75-99)
--- NOTE | 2020-10-25 17:57 | CC ---
CARDIAC CATHETERIZATION REPORT INDICATION: Acute non ST-segment elevation [place]. HISTORY OF PRESENT ILLNESS: This is a 79-year-old lady who presented to the hospital with recurrent episodes of chest pain for the last several days and dizziness and near-syncope today. On her initial presentation, the troponin was elevated. EKG showed sinus rhythm with nonspecific ST-T wave changes. She did not have any episodes of chest pain and she has mild renal insufficiency. I was concerned with her ongoing symptoms for the last 1 week and the near syncopal symptoms that she had today and advised her to undergo cardiac catheterization. She has been explained of risks, benefits and alternatives, in particular, the risk of contrast induced nephropathy. Patient understood all the issues and agreed to proceed with it. PROCEDURE NOTE: After obtaining informed consent, left heart catheterization and coronary angiogram were performed via the right femoral artery using standard Peggy catheters. The patient tolerated the procedure well without any obvious immediate complications. HEMODYNAMICS: Left ventricular end-diastolic pressure is 14 mm. There is no significant gradient across the aortic valve. LEFT VENTRICULOGRAM: Left ventriculogram is not performed. ANGIOGRAPHIC DATA: Her coronaries are calcified. On engaging the LAD and its branches, while they are calcified, they are free of significant stenosis. Circumflex coronary artery shows a 70% stenosis in the proximal part and right coronary artery also appears calcified but is free of significant stenosis. ASSESSMENT: Focal area of stenosis involving circumflex coronary artery in a patient with stuttering episodes of chest pain and elevated troponin. I asked Dr. CHRISTA Cooney, the on- call home lending officer, to review the angiographic data which he did and would proceed with angioplasty of circumflex coronary artery. At the end of the procedure the patient is free of symptoms. MMODL / IJN: [id number] /
[2020-10-25] MEDS ORDERED: NITROGLYCERIN OINT 1 INCH/GM PACKET TOPICAL SCH (18:00)
--- NOTE | 2020-10-25 18:48 | CC ---
CARDIAC CATHETERIZATION REPORT DATE OF SERVICE: 10/25/2020. PROCEDURE PERFORMED: Coronary angiography of left coronary artery. PERFORMED BY: Dr. Ct Cooney. CLINICAL INFORMATION: Mrs. Ernesto Drake is a 79-year-old lady without significant past medical history who presented to the hospital with chest pain, had a troponin elevation and Dr. Chacon evaluated the patient and performed coronary angiography and there was a suspicious lesion in the proximal portion of the circumflex in a very tortuous area. He advised evaluation by me and possible intervention and therefore I came into see the patient, explained to her the rationale, risks, benefits, options, and then performed the procedure. PROCEDURE NOTE: The existing 6-Faroese introducer from the right femoral artery was used to perform procedure. I initially started with a JL4 guide catheter and before I took the injection, I did a hand injection with root short and noted that there was a very suspicious area just above the left main with some staining. Given this, I was concerned there may be a small self-contained flap in the ascending aorta just above the left main. However, I went back with a 3.5 left Peggy guide catheter. With this, I cannulated the left coronary artery and took 3 pictures in steep caudal projections and noted that the lesion in the circumflex did not seem significant in caudal views. In some cranial views on the diagnostic injections, there was some suspicious area, but I do not believe the lesion is critical. There is a plaque of no more than 40% located. The first obtuse marginal also comes off and runs laterally and there is no significant disease in the obtuse marginal branch also. There is a chunk of calcium that is evident in the obtuse marginal, but I do not see a significant stenosis that would require intervention. I therefore did not perform any PCI. The sheath was taken out and Angio-Seal device used to secure hemostasis. The ACT was 194. Good hemostasis was secured. In view of a suspicion for ascending aortic flap just above the left main, I am recommending ICU hospitalization for the night with intravenous nitroglycerin to keep the systolic less than 130 and also beta blockers as well. I discussed this matter with the patient as well as her granddaughter and patient was sent to the ICU in a stable condition. MMODL / IJN: [id number] /
[2020-10-25] MEDS: METOPROLOL TARTRATE 50 MG TAB PO SCH (20:55)
[2020-10-25] MEDS ORDERED: MELATONIN 5 MG TABLET PO PRN (21:00)
[2020-10-26] MEDS: SODIUM CHLORIDE 0.9% 1,000 ML IV SCH ×2 (00:52→09:02)
[2020-10-26 05:56] LABS: Basophils % (A) 0 %; Eosinophils # (A) 0.1 k/uL (0-0.7); Eosinophils % (A) 1 %; HCT 33.6 % (34.0-46.0); HGB 11.9 gm/dL (11.4-16.0); Lymphocytes # (A) 1.1 k/uL (1.0-4.8); Lymphocytes % (A) 20 %; MCH 35.1 pg (25.0-35.0); MCHC 35.5 g/dL (31.0-37.0); MCV 98.8 fL (80.0-100.0); Mean Platelet Volume 8.3; Monocytes # (A) 0.3 k/uL (0-1.0); Monocytes % (A) 6 %; Neutrophils # (A) 3.9 k/uL (1.3-7.7); Neutrophils % (A) 71 %; Platelet Count 139 k/uL (150-450); RDW 12.5 % (11.5-15.5); WBC 5.5 k/uL (3.8-10.6)
[2020-10-26 06:14] LABS: Cholesterol 199 mg/dL (<200); HDL Cholesterol 67 mg/dL (40-60); LDL Cholesterol,Calculated 108 mg/dL (0-99); Triglycerides 119 mg/dL (<150)
[2020-10-26 06:47] LABS: Calcium 8.8 mg/dL (8.4-10.2); Potassium 3.9 mmol/L (3.5-5.1)
[2020-10-26] MEDS ORDERED: POTASSIUM CHLORIDE ER 20 MEQ TAB.ER PO STA (06:59)
[2020-10-26] MEDS ORDERED: HEPARIN SODIUM,PORCINE 10,000 UNIT in SODIUM CHLORIDE 0.9% 1,000 ML IRRIGATION PRN (07:00)
[2020-10-26] MEDS ORDERED: HEPARIN SODIUM,PORCINE 2,500 UNIT in SODIUM CHLORIDE 0.9% 250 ML IRRIGATION PRN (07:00)
[2020-10-26] MEDS ORDERED: ASPIRIN 325 MG TAB PO SCH (09:00)
[2020-10-26] MEDS ORDERED: ASPIRIN 81 MG PO SCH (09:00)
[2020-10-26] MEDS: ATORVASTATIN 40 MG TAB PO SCH (09:01)
[2020-10-26] MEDS: METOPROLOL TARTRATE 50 MG TAB PO SCH ×2 (09:02→21:34)
[2020-10-26] MEDS: ASPIRIN 81 MG PO SCH (09:02)
--- NOTE | 2020-10-26 09:47 | ECHOF ---
Referral Reason:NSTEMI MEASUREMENTS -------- HEIGHT: 157.5 cm WEIGHT: 46.3 kg BP: 157/98 RVIDd: 3.0 cm (< 3.3) IVSd: 1.3 cm (0.6 - 1.1) LVIDd: 3.8 cm (3.9 - 5.3) LVPWd: 1.3 cm (0.6 - 1.1) IVSs: 1.7 cm LVIDs: 3.2 cm LVPWs: 1.4 cm LA Diam: 2.8 cm (2.7 - 3.8) Ao Diam: 3.7 cm (2.0 - 3.7) AV Cusp: 1.2 cm (1.5 - 2.6) MV EXCURSION: 11.280 mm (> 18.000) MV EF SLOPE: 14 mm/s (70 - 150) EPSS: 2.0 cm MV E Sunday: 0.56 m/s MV DecT: 383 ms MV A Sunday: 1.28 m/s MV E/A Ratio: 0.44 AV maxP.25 mmHg AV meanP.18 mmHg AR PHT: 668 ms RAP: 5.00 mmHg RVSP: 26.69 mmHg FINDINGS -------- Sinus rhythm. This was a technically good study. The left ventricular size is normal. There is mild concentric left ventricular hypertrophy. Overa ll left ventricular systolic function is mildly impaired with, an EF between 45 - 50 %. The right ventricle is normal in size. The left atrium is normal in size. The right atrium is normal in size. Interatrial and interventricular septum intact. There is mild aortic valve sclerosis. There is mild aortic regurgitation. There is mild aortic st enosis present. Peak/mean gradient across the Aortic Valve is 18.25mmHg / 10.18mmHg. The mitral valve leaflets are mildly thickened. Mild mitral annular calcification present. Mild tricuspid regurgitation present. Right ventricular systolic pressure is normal at < 35 mmHg. Trace/mild (physiologic) pulmonic regurgitation. The aortic root size is normal. Normal inferior vena cava with normal inspiratory collapse consistent with estimated right atrial pre ssure of 5 mmHg. The inferior vena cava is mildly dilated. There is no pericardial effusion. CONCLUSIONS -------- 1. The left ventricular size is normal. 2. There is mild concentric left ventricular hypertrophy. 3. There is mild aortic valve sclerosis. 4. There is mild aortic regurgitation. 5. There is mild aortic stenosis present. 6. Peak/mean gradient across the Aortic Valve is 18.25mmHg / 10.18mmHg. 7. The mitral valve leaflets are mildly thickened. 8. Mild mitral annular calcification present. 9. Mild tricuspid regurgitation present. 10. Trace/mild (physiologic) pulmonic regurgitation. 11. The inferior vena cava is mildly dilated. 12. There is no pericardial effusion. REAL ESTATE ACCOUNT EXECUTIVE: Daly Briones RDCS
[2020-10-26] MEDS: amLODIPine 5 MG TAB PO SCH (10:17)
[2020-10-26] MEDS: NITROGLYCERIN OINT 1 INCH/GM PACKET TOPICAL SCH ×2 (10:18→16:12)
--- NOTE | 2020-10-26 11:29 | PN ---
PROGRESS NOTE Ernesto is a 79-year-old lady that presented to hospital with acute non ST-segment elevation [place] and underwent cardiac catheterization by me that showed a moderate stenosis involving circumflex coronary artery. The ladies suit operator research nurse practitioner obtained further images with a guiding catheter and did not think the circumflex coronary artery lesion was significant. He, however, after the initial images thought that there was a small contained dissection within the aorta just about the origin of the left main coronary artery. Overnight, patient was admitted to ICU, doing well and is free of symptoms. Blood pressure is well controlled. Heart rate is normal. She does not have chest pain. Does not have shortness of breath and is doing well otherwise. I am going to stop the IV nitroglycerin this morning, start her on nitroglycerin paste 1 inch t.i.d., continue the aspirin, Norvasc 5 mg daily, Lopressor 50 b.i.d., and I will transfer her out of ICU and await the echo results. Her creatinine has improved somewhat from presentation to 1.2. Her troponins have trended down at 2.1. Coronavirus is negative. LDL cholesterol is 108. PHYSICAL EXAMINATION: She is comfortable at rest. Heart rate is 74 beats per minute. Blood pressure is 105/86. Respiratory rate is 18. O2 saturation is 98% on room air. Chest exam reveals good air entry bilaterally. Heart exam reveals first and second heart sounds. There is no murmur. Abdomen is soft. Examination of extremities did not reveal any edema. Groin is free of bleeding, bruit, hematoma. Foot pulses are intact. ASSESSMENT: 1. Acute non ST-segment elevation myocardial infarction, status post catheterization and advised medical therapy. 2. 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 PLAN: Will continue to watch her at this time. Since she does not have any symptoms, I do not see the need to do a CT scan of her aorta at this time and further risk contrast induced nephropathy. If she develops any symptoms, I will investigate it further. MMODL / IJN: [id number] /
--- NOTE | 2020-10-26 16:40 | P.PN ---
Subjective 79-year-old pleasant female came in with compensative chest pressure like sensation on exertion which started today morning across the chest with some nausea and dry heaving and the mild diaphoresis. Patient denied any significant shortness of breath or patient pain lasted for about 10 minutes moderate across the chest showed from shoulder to shoulder denied any fever chills not associated with food nonpleuritic denied any headache. Patient is found to have some and depressions in anterio atrial leads. Patient never had any cardiac workup in the past patient had a similar episode 2 years ago patient had elevated troponin of 2.13. Cardiology is evaluating the patient. Patient has creatinine of 1.4 baseline is not available at this time. 10/26/2020 Patient had a cardiac catheterization which showed some atherosclerotic vascular disease but didn't show any critical occlusion that need stenting. Patient has a small contained dissection because of which patient was monitored overnight in the intensive care unit. Creatinine improved to 1.2 patient doesn't have any chest pain at this time. Constitutional: Denied any fatigue denied any fever. Cardio vascular: denied any chest pain, palpitations Gastrointestinal denied any nausea vomiting Pulmonary: Denied any shortness of breath cough Neurologic denied any new focal deficits All inpatient medications were reviewed and appropriate changes in these medications as dictated in the interval history and assessment and plan. Objective - Vital Signs Vital signs: Vital Signs Temp 97.8 F 10/26/20 16:00 Pulse 66 10/26/20 16:00 Resp 12 10/26/20 16:00 BP 150/67 10/26/20 16:00 Pulse Ox 97 10/26/20 16:00 Intake & Output 10/25/20 10/26/20 10/26/20 18:59 06:59 18:59 Intake Total 200 838.825 764.15 Output Total 300 0 Balance 200 538.825 764.15 Weight 46.266 kg 45.8 kg Intake: IV 200 825 750 Sodium Chloride 0.9% 1, 825 750 000 ml @ 75 mls/hr IV . [id number] [facility] Rx#:[id number] Intake, IV Titration 13.825 14.15 Amount Nitroglycerin-D5w Pmx 50 13.825 14.15 mg In Dextrose/Water 1 250ml.bag @ 10 MCG/MIN 3 mls/hr IV .Q24H [facility] Rx#: [id number] Output: Urine 300 0 Other: Voiding Method Toilet # Voids 2 - Exam PHYSICAL EXAMINATION: GENERAL: The patient is alert and oriented x3, not in any acute distress. Well developed, well nourished. HEENT: Pupils are round and equally reacting to light. EOMI. No scleral icterus. No conjunctival pallor. Normocephalic, atraumatic. No pharyngeal erythema. No thyromegaly. CARDIOVASCULAR: S1 and S2 present. No murmurs, rubs, or gallops. PULMONARY: Chest is clear to auscultation, no wheezing or crackles. ABDOMEN: Soft, nontender, nondistended, normoactive bowel sounds. No palpable organomegaly. MUSCULOSKELETAL: No joint swelling or deformity. EXTREMITIES: No cyanosis, clubbing, or pedal edema. NEUROLOGICAL: Gross neurological examination did not reveal any focal deficits. SKIN: No rashes. - Labs CBC & Chem 7: 10/26/20 05:38 10/26/20 05:38 Labs: Abnormal Lab Results - Last 24 Hours (Table) 10/25/20 10/25/20 10/26/20 Range/Units 17:31 18:55 05:38 RBC (3.80-5.40) m/uL Hct (34.0-46.0) % MCH (25.0-35.0) pg Plt Count (150-450) k/uL Sodium 136 L (137-145) mmol/L BUN 26 H (7-17) mg/dL Creatinine 1.26 H (0.52-1.04) mg/dL POC Glucose (mg/dL) 100 H (75-99) mg/dL Troponin I 2.110 H* (0.000-0.034) ng/mL LDL Cholesterol, Calc (0-99) mg/dL HDL Cholesterol (40-60) mg/dL 10/26/20 10/26/20 Range/Units 05:38 05:38 RBC 3.40 L (3.80-5.40) m/uL Hct 33.6 L (34.0-46.0) % MCH 35.1 H (25.0-35.0) pg Plt Count 139 L (150-450) k/uL Sodium (137-145) mmol/L BUN (7-17) mg/dL Creatinine (0.52-1.04) mg/dL POC Glucose (mg/dL) (75-99) mg/dL Troponin I (0.000-0.034) ng/mL LDL Cholesterol, Calc 108 H (0-99) mg/dL HDL Cholesterol 67 H (40-60) mg/dL Assessment and Plan Plan: Acute non-ST elevation myocardial infarction: Patient had a cardiac catheterization which did not show any critical stenosis did show some atherosclerotic vascular disease and coronary arteries. Patient is being medically managed did not require any stenting. 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 -Renal failure unknown whether patient has acute renal failure chronic kidney disease baseline is not available. She was onIVfluids - nicotine use: Counseling was provided
[2020-10-27] MEDS: NITROGLYCERIN OINT 1 INCH/GM PACKET TOPICAL SCH ×2 (00:08→08:07)
[2020-10-27 08:05] VITALS: BP 128/94; PULSE 78; RESP 16; TEMP 98
[2020-10-27] MEDS: ASPIRIN 81 MG PO SCH (08:07)
[2020-10-27] MEDS: ATORVASTATIN 40 MG TAB PO SCH (08:07)
[2020-10-27] MEDS: METOPROLOL TARTRATE 50 MG TAB PO SCH (08:07)
[2020-10-27] MEDS: amLODIPine 5 MG TAB PO SCH (08:07)
[2020-10-27 09:32] LABS: Calcium 8.7 mg/dL (8.4-10.2); Potassium 4.1 mmol/L (3.5-5.1)
[2020-10-27] MEDS ORDERED: ISOSORBIDE MONONITRATE ER 30 MG TAB.ER.24H PO SCH (11:45)
[2020-10-27] MEDS ORDERED: CLOPIDOGREL 75 MG TAB PO SCH (11:45)
--- NOTE | 2020-10-27 13:10 | P.PN ---
Subjective Progress Note Date: 10/27/20 HISTORY OF PRESENT ILLNESS: Patient is status post cardiac catheterization that showed moderate stenosis of the circumflex coronary artery. Dr. Cooney then obtained further images and did not think the circumflex coronary artery was significant. No stenting was performed. Medical management was recommended. The patient was examined this morning at the bedside. She denies chest pain or pressure. She denies shortness of breath. Vital signs are stable. She is very anxious to be discharged home. PHYSICAL EXAM: VITAL SIGNS: Reviewed. GENERAL: Well-developed in no acute distress. NECK: Supple. No JVD or thyromegaly LUNGS: Respirations even and unlabored. Lungs essentially clear to auscultation bilaterally. HEART: Regular rate and rhythm. S1 and S2 heard. EXTREMITIES: Normal range of motion. No clubbing or cyanosis. Peripheral pulses intact. No lower extremity edema. Right groin soft with pulse present. 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 She is to follow-up in [address] Smith Nurse practitioner note has been reviewed by physician. Signing provider agrees with the documented findings, assessment, and plan of care. Objective - Vital Signs Vital signs: Vital Signs Temp 98.0 F 10/27/20 08:00 Pulse 78 10/27/20 08:00 Resp 16 10/27/20 08:00 BP 128/94 10/27/20 08:00 Pulse Ox 97 10/27/20 08:00 Intake & Output 10/26/20 10/27/20 10/27/20 18:59 06:59 18:59 Intake Total 884.15 500 240 Output Total 0 Balance 884.15 500 240 Weight 45.8 kg Intake: IV 750 500 Sodium Chloride 0.9% 1, 750 500 000 ml @ 75 mls/hr IV . [id number] [facility] Rx#:[id number] Intake, IV Titration 14.15 Amount Nitroglycerin-D5w Pmx 50 14.15 mg In Dextrose/Water 1 250ml.bag @ 10 MCG/MIN 3 mls/hr IV .Q24H [facility] Rx#: [id number] Oral 120 240 Output: Urine 0 Other: Voiding Method Toilet Toilet Toilet # Voids 2 1 - Labs CBC & Chem 7: 10/26/20 05:38 10/27/20 08:37 Labs: Abnormal Lab Results - Last 24 Hours (Table) 10/27/20 Range/Units 08:37 BUN 24 H (7-17) mg/dL Creatinine 1.26 H (0.52-1.04) mg/dL Glucose 102 H (74-99) mg/dL
--- NOTE | 2020-10-27 13:39 | P.DS ---
Providers Date of admission: 10/25/20 13:26 Attending physician: Varun Prajapati Consults: 10/25/20 13:26 Consult Physician Urgent Consulting Provider: [facility] Consult Reason/Comments: N STEMI Do you want consulting provider notified?: Yes Primary care physician: [facility] Hospital Course: 79-year-old pleasant female came in with compensative chest pressure like sensation on exertion which started today morning across the chest with some nausea and dry heaving and the mild diaphoresis. Patient denied any significant shortness of breath or patient pain lasted for about 10 minutes moderate across the chest showed from shoulder to shoulder denied any fever chills not associated with food nonpleuritic denied any headache. Patient is found to have some and depressions in anterio atrial leads. Patient never had any cardiac workup in the past patient had a similar episode 2 years ago patient had elevated troponin of 2.13. Cardiology is evaluating the patient. Patient has creatinine of 1.4 baseline is not available at this time. 10/26/2020 Patient had a cardiac catheterization which showed some atherosclerotic vascular disease but didn't show any critical occlusion that need stenting. Patient has a small contained dissection because of which patient was monitored overnight in the intensive care unit. Creatinine improved to 1.2 patient doesn't have any chest pain at this time. 10/27/2020 Patient is clinically doing well is being discharged today cleared by cardiology PHYSICAL EXAMINATION: GENERAL: The patient is alert and oriented x3, not in any acute distress. Well developed, well nourished. HEENT: Pupils are round and equally reacting to light. EOMI. No scleral icterus. No conjunctival pallor. Normocephalic, atraumatic. No pharyngeal erythema. No thyromegaly. CARDIOVASCULAR: S1 and S2 present. No murmurs, rubs, or gallops. PULMONARY: Chest is clear to auscultation, no wheezing or crackles. ABDOMEN: Soft, nontender, nondistended, normoactive bowel sounds. No palpable organomegaly. MUSCULOSKELETAL: No joint swelling or deformity. EXTREMITIES: No cyanosis, clubbing, or pedal edema. NEUROLOGICAL: Gross neurological examination did not reveal any focal deficits. SKIN: No rashes. Assessment and Plan Plan: Acute non-ST elevation myocardial infarction: Patient had a cardiac catheterization which did not show any critical stenosis did show some atherosclerotic vascular disease and coronary arteries. Patient is being medically managed did not require any stenting. Patient procedure was complicated by contained dissection in the aortic dissection. -Renal failure unknown whether patient has acute renal failure chronic kidney disease baseline is not available. She was onIVfluids - nicotine use: Counseling was provided Plan - Discharge Summary Discharge Rx Participant: No New Discharge Prescriptions: New Isosorbide Mononitrate ER [Imdur] 30 mg PO DAILY #30 tab.er.24h Atorvastatin [Lipitor] 40 mg PO DAILY #30 tab Metoprolol Tartrate [Lopressor] 50 mg PO BID #60 tab Nitroglycerin Sl Tabs [Nitrostat] 0.4 mg SUBLINGUAL Q5M PRN #30 tab PRN Reason: Chest Pain amLODIPine [Norvasc] 5 mg PO DAILY #30 tab Clopidogrel [Plavix] 75 mg PO DAILY #30 tab Continue Aspirin 81 mg PO DAILY Multivitamins, Thera [Multivitamin (formulary)] 1 tab PO DAILY Calcium Carbonate/Vitamin D3 [Calcium 600-Vit D3 400 Tablet] 1 tab PO DAILY Acetaminophen Tab [Tylenol] 650 mg PO Q6H PRN PRN Reason: Pain Melatonin 5 mg PO HS PRN PRN Reason: SLEEP Cholecalciferol [Vitamin D3 (25 Mcg = 1000 Iu)] 50 mcg PO DAILY Discharge Medication List Acetaminophen Tab [Tylenol] 650 mg PO Q6H PRN 01/05/15 [History] Aspirin 81 mg PO DAILY 01/05/15 [History] Calcium Carbonate/Vitamin D3 [Calcium 600-Vit D3 400 Tablet] 1 tab PO DAILY 01/05/15 [History] Multivitamins, Thera [Multivitamin (formulary)] 1 tab PO DAILY 01/05/15 [History] Cholecalciferol [Vitamin D3 (25 Mcg = 1000 Iu)] 50 mcg PO DAILY 09/13/20 [History] Melatonin 5 mg PO HS PRN 09/13/20 [History] Atorvastatin [Lipitor] 40 mg PO DAILY #30 tab 10/27/20 [Rx] Clopidogrel [Plavix] 75 mg PO DAILY #30 tab 10/27/20 [Rx] Isosorbide Mononitrate ER [Imdur] 30 mg PO DAILY #30 tab.er.24h 10/27/20 [Rx] Metoprolol Tartrate [Lopressor] 50 mg PO BID #60 tab 10/27/20 [Rx] Nitroglycerin Sl Tabs [Nitrostat] 0.4 mg SUBLINGUAL Q5M PRN #30 tab 10/27/20 [Rx] amLODIPine [Norvasc] 5 mg PO DAILY #30 tab 10/27/20 [Rx] Follow up Appointment(s)/Referral(s): Conor Blood DO [Primary Care Provider] - 3 Days (The office will call you with a follow up appointment date and time.) Jose Chacon MD [STAFF PHYSICIAN] - 2 Weeks (The office will call you with appointment date and time.) Patient Instructions/Handouts: Left Heart Catheterization (DC) Discharge Disposition: HOME SELF-CARE
--- NOTE | 2020-11-03 16:17 | CDI ---
Documentation Clarification Form Date: 11/03/2020 04:04:56 PM From: Eleni Tatum RN, CCDS Admit Date: 10/25/2020 01:26:00 PM Patient Name: Ernesto Drake Visit Number: [id number] Discharge Date: 10/27/2020 01:37:00 PM ATTENTION: The Clinical Documentation Specialists (CDI) and [facility] Coding Staff appreciate your assistance in clarifying documentation. Please respond to the clarification below the line at the bottom and electronically sign. The CDI & [facility] Coding staff will review the response and follow-up if needed. Please note: Queries are made part of the Legal Health Record. If you have any questions, please contact the author of this message via ITS. Dr. 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." 10/26-D/C Summary 10/27 Attending: "Patient procedure was complicated by contained dissection in the aortic dissection." Treatment: 10/25 Cardiac Cath Note: "I am recommending ICU hospitalization for the night with intravenous nitroglycerin to keep the systolic less than 130 and also beta blockers as well." What relationship, if any, exists between the diagnosis of Aortic Root Dissection and the procedure: [ ] Aortic Root Dissection is a complication of surgical procedure [ ] Aortic Root Dissection is an expected outcome of the surgical procedure [ ] Aortic Root Dissection is related to patients co-morbid condition(s) (please specify conditions) & not a complication of the procedure [ ] Aortic Root Dissection has been ruled out [ ] Other please specify ____ [ ] Unable to determine (Template Last Revised: September 2020) Aortic Root Dissection has been ruled out MTDD
== END 2020-10-27 13:37 | disposition home or self-care (01) | DRG 281 ==
LOC: EC 10:32 → 3SCARD 13:26 → 2SICU 17:04 → 3SCARD 10-26 16:31
PROVIDERS: ADMIT Hospitalist; ATTEND Hospitalist
PROC: B2111ZZ Fluoroscopy of Multiple Coronary Arteries using Low Osmolar Contrast (ICD-10-PCS; 2020-10-25)
PROC: B2101ZZ Fluoroscopy of Single Coronary Artery using Low Osmolar Contrast (ICD-10-PCS; 2020-10-25)
PROC: 4A023N7 Measurement of Cardiac Sampling and Pressure, Left Heart, Percutaneous Approach (ICD-10-PCS; principal; 2020-10-25 16:05)
DX: I21.4 Non-ST elevation (NSTEMI) myocardial infarction (principal); N17.9 Acute kidney failure, unspecified; J44.9 Chronic obstructive pulmonary disease, unspecified; I71.4 Abdominal aortic aneurysm, without rupture; Z20.822 Contact with and (suspected) exposure to COVID-19; N18.9 Chronic kidney disease, unspecified; I25.10 Atherosclerotic heart disease of native coronary artery without angina pectoris; M19.90 Unspecified osteoarthritis, unspecified site; F17.200 Nicotine dependence, unspecified, uncomplicated; Z71.6 Tobacco abuse counseling; Z79.82 Long term (current) use of aspirin; Z79.899 Other long term (current) drug therapy; Z86.73 Personal history of transient ischemic attack (TIA), and cerebral infarction without residual deficits; Z90.49 Acquired absence of other specified parts of digestive tract; Z87.19 Personal history of other diseases of the digestive system; Z86.69 Personal history of other diseases of the nervous system and sense organs; Z98.890 Other specified postprocedural states; Z91.09 Other allergy status, other than to drugs and biological substances; Z80.8 Family history of malignant neoplasm of other organs or systems; Z80.41 Family history of malignant neoplasm of ovary; Z80.42 Family history of malignant neoplasm of prostate; Z82.3 Family history of stroke
CPT/HCPCS: 36415; 71046; 80048; 80053; 80061; 83735; 84484; 85025; 85347; 85610; 85730; 87635; 93005; 93306; 93458; 99285

== ENCOUNTER → 2020-11-22 | Outpatient (CLI) | payer MEDICARE ==
--- NOTE | 2020-11-23 14:10 | MM ---
Reason for exam: screening (asymptomatic). Last mammogram was performed 1 year and 4 months ago. History: Patient is postmenopausal. Family history of breast cancer in sister at age 78. Physical Findings: A clinical breast exam by your physician is recommended on an annual basis and results should be correlated with mammographic findings. MG 3D Screening Mammo W/Cad Bilateral CC and MLO view(s) were taken. Prior study comparison: July 16, 2019, bilateral MG 3d screening mammo w/cad. June 23, 2018, bilateral MG screening mammo w CAD. The breast tissue is extremely dense which could obscure a lesion on mammography. Benign appearing calcifications in the right breast. No significant changes when compared with prior studies. ASSESSMENT: Benign, BI-RAD 2 RECOMMENDATION: Routine screening mammogram of both breasts in 1 year.
--- NOTE | 2020-11-24 10:56 | BD ---
EXAMINATION TYPE: Axial Bone Density DATE OF EXAM: 11/22/2020 COMPARISON: NONE CLINICAL HISTORY: Height: 62.5 Weight: 103.0 FRAX RISK QUESTIONS: Alcohol (3 or more units per day): no Family History (Parent hip fracture): no Glucocorticoids (More than 3mos): no (Ex: prednisone, prednisolone, methylprednisolone, dexamethasone, and hydrocortisone). History of Fracture in Adulthood: yes Secondary Osteoporosis: 1. Type 1 Diabetes: no 2. Hyperthyroidism: no 3. Menopause before 45: yes 4. Malnutrition: no 5. Chronic liver disease: no Rheumatoid Arthritis: no Current Tobacco Use: yes RISK FACTORS HISTORY OF: History of Wrist Fracture: right When: 20 years ago Surgery to Spine/Hip(right/left)/Wrist (right/left): no Family History of Osteoporosis: no Active: yes Diet low in dairy products/other sources of calcium: no Postmenopausal woman: age 42 Lost more than 2 inches in height since high school: no Adrenal Insufficiency: MEDICATIONS: heart meds Additional History: EXAM MEASUREMENTS: Bone mineral densitometry was performed using the [employer]. Bone mineral density as measured about the Lumbar spine is: ----- L1-L4(G/cm2): 1.018 T Score Values are as follows: ----- L2: -1.1 ----- L3: -1.6 ----- L4: -1.1 ----- L1-L4: -1.3 Bone mineral density has: decreased -5.0 % since study of: 02.07.2014 Bone mineral density about the R hip (g/cm2): 0.777 Bone mineral density about the L hip (g/cm2): 0.742 T Score values are as follows: -----R Neck: -1.9 -----L Neck: -2.1 -----R Total: -2.2 -----L Total: -2.4 Bone mineral density has: decreased -14.4 % since study of: 02.07.2014 IMPRESSION: Osteopenia NOTE: T-SCORE=SD OF THE YOUNG ADULT MEAN.
== END | disposition home or self-care (01) ==
LOC: RADMAMWWP 15:55
PROVIDERS: ATTEND Family Medicine
DX: Z12.31 Encounter for screening mammogram for malignant neoplasm of breast (principal); Z80.3 Family history of malignant neoplasm of breast; Z78.0 Asymptomatic menopausal state; M85.80 Other specified disorders of bone density and structure, unspecified site
CPT/HCPCS: 77063; 77067; 77080

== ENCOUNTER 2021-03-31 10:01 | Emergency (ER) | payer MEDICARE ==
[2021-03-31 10:11] VITALS: BP 115/60; PULSE 92; RESP 18; TEMP 97.8
[2021-03-31] MEDS ORDERED: Acetaminophen-Codeine 300-30mg TAB PO STA (10:30)
--- NOTE | 2021-03-31 10:46 | XR ---
EXAMINATION TYPE: XR knee 4V LT DATE OF EXAM: 03/31/2021 COMPARISON: NONE HISTORY: 80 years Female. STUDY INDICATION GIVEN: pain . TECHNIQUE: 4 radiographs of the right knee IMPRESSION: No acute osseous or articular abnormality. Advanced tricompartmental osteoarthrosis with moderate size joint effusion. Vascular calcification in the distal thigh and proximal knee posteriorly. Lateral meniscal calcifications.
--- NOTE | 2021-03-31 11:01 | ED ---
Extremity Problem HPI - General Chief complaint: Extremity Problem,Nontraumatic Stated complaint: Left knee pain and swelling Time Seen by Provider: 03/31/21 10:18 Source: patient, family, RN notes reviewed Mode of arrival: wheelchair Limitations: no limitations - History of Present Illness Initial comments: Patient is a 80-year-old female that presents to the emergency department complaining of left knee pain. She denied any trauma or injury. She notes that she woke up yesterday morning with pain but it gradually got better throughout the day with use. She notes that today she is having a similar issue but it has not gotten better after walking around for little bit. She notes that she does have arthritis in any of her joints it would not be surprised if she had in her left knee. Patient notes that her pain is approximately a 6-7 out of 10 but does not like taking NSAIDs due to kidney problems. She denied any other issues or complaints at this time. She was a well-appearing 80-year-old female in no apparent distress or pain. She denied any chest pain shortness of breath headache nausea vomiting diarrhea constipation fever fatigue chills decreased range of motion or strength in her left lower extremities. - Related Data Home Medications Medication Instructions Recorded Confirmed Cholecalciferol [Vitamin D3 (25 50 mcg PO DAILY 09/13/20 10/25/20 Mcg = 1000 Iu)] Melatonin 5 mg PO HS PRN 09/13/20 10/25/20 Clopidogrel [Plavix] 75 mg PO DAILY@1200 03/31/21 03/31/21 Isosorbide Mononitrate ER [Imdur] 30 mg PO [id number] 03/31/21 03/31/21 Nitroglycerin Sl Tabs [Nitrostat] 0.4 mg SL Q5M PRN 03/31/21 03/31/21 amLODIPine [Norvasc] 5 mg PO DAILY@1200 03/31/21 03/31/21 carvediloL [Coreg] 3.125 mg PO AC-BID 03/31/21 03/31/21 Allergies Allergy/AdvReac Type Severity Reaction Status Date / Time cold AdvReac HIVES AND Uncoded 03/31/21 10:53 TEMPERATURE DROPS Review of Systems ROS Statement: Those systems with pertinent positive or pertinent negative responses have been documented in the HPI. ROS Other: All systems not noted in ROS Statement are negative. Past Medical History Past Medical History: CVA/TIA, Osteoarthritis (OA) Additional Past Medical History / Comment(s): HAS CHRONIC MICROSCOPIC BLOOD IN UA, TIA , CHRONIC KIDNEY DISEASE, DR PARRA, AAA History of Any Multi-Drug Resistant Organisms: None Reported Past Surgical History: Appendectomy, Cholecystectomy, Ear Surgery Past Anesthesia/Blood Transfusion Reactions: No Reported Reaction, Motion Sickness Past Psychological History: No Psychological Hx Reported Smoking Status: Current every day smoker Past Alcohol Use History: None Reported Past Drug Use History: None Reported - Past Family History Sister(s) Family Medical History: Cancer Additional Family Medical History / Comment(s): BONE,OVARIAN Father Family Medical History: CVA/TIA Brother(s) Family Medical History: Cancer Additional Family Medical History / Comment(s): PROSTATE General Exam Limitations: no limitations General appearance: alert, in no apparent distress Head exam: Present: atraumatic, normocephalic, normal inspection Eye exam: Present: normal appearance, PERRL, EOMI. Absent: scleral icterus, conjunctival injection, periorbital swelling Neck exam: Present: normal inspection Respiratory exam: Present: normal lung sounds bilaterally. Absent: respiratory distress, wheezes, rales, rhonchi, stridor Cardiovascular Exam: Present: regular rate, normal rhythm, normal heart sounds. Absent: systolic murmur, diastolic murmur, rubs, gallop, clicks GI/Abdominal exam: Present: soft, normal bowel sounds. Absent: distended, tenderness, guarding, rebound, rigid Extremities exam: Present: normal inspection, full ROM, normal capillary refill. Absent: tenderness, pedal edema, joint swelling, calf tenderness Left Knee exam: Present: normal inspection, full ROM, tenderness (Minimal on palpation bilaterally), swelling (Minimal). Absent: abrasion, laceration, ecchymosis, deformity, crepitus, dislocation, erythema, effusion Lower Leg exam: Present: normal inspection, full ROM. Absent: tenderness, swelling, abrasion, laceration, palpable cord, Homans' sign Neurological exam: Present: alert, oriented X3 Psychiatric exam: Present: normal affect, normal mood Skin exam: Present: warm, dry, intact, normal color. Absent: rash Course Vital Signs 03/31/21 10:07 Temperature 97.8 F Pulse Rate 92 Respiratory 18 Rate Blood Pressure 115/60 O2 Sat by Pulse 98 Oximetry Medical Decision Making - Medical Decision Making 80-year-old female complaining of left knee pain is nontraumatic. X-ray left knee, Tylenol 3 tablet ordered. X-ray shows no acute fractures or dislocations just osteoarthritis. With a small joint effusion. - Radiology Data Radiology results: report reviewed, image reviewed X-ray of the left knee: No acute osseous or articular abnormality. Advanced tricompartmental osteoarthritis moderate size joint effusion. Vascular calcification in the distal thigh and proximal knee posteriorly lateral meniscal calcifications. Disposition Clinical Impression: Left knee pain, Osteoarthritis of left knee, Knee effusion, left Disposition: HOME SELF-CARE Condition: Stable Instructions (If sedation given, give patient instructions): Knee Pain (ED) Additional Instructions: Please return to the Emergency Department if symptoms worsen or any other concerns. Follow-up primary care 1-2 days. Follow-up with orthopedics as needed. Take Stephan bandage off at night. Take Tylenol Motrin for inflammation and pain. Rest ice compress elevate. Is patient prescribed a controlled substance at d/c from ED?: No Referrals: Conor Parra DO [Primary Care Provider] - 1-2 days Time of Disposition: 11:01
== END 2021-03-31 11:17 | disposition home or self-care (01) ==
LOC: EC 10:01
DX: M17.12 Unilateral primary osteoarthritis, left knee (principal); F17.200 Nicotine dependence, unspecified, uncomplicated; N18.9 Chronic kidney disease, unspecified; Z91.09 Other allergy status, other than to drugs and biological substances
CPT/HCPCS: 99283

== ENCOUNTER → 2021-12-20 | Outpatient (CLI) | payer MEDICARE ==
--- NOTE | 2022-01-01 07:15 | MM ---
Reason for Exam: Screening (asymptomatic). Last mammogram was performed 1 year(s) and 1 month(s) ago. Patient History: Menarche at age 15. First Full-Term at age 22. Postmenopausal. Sister had breast cancer, age 78. Risk Values: Zarina 5 year model risk: 3.2%. NCI Lifetime model risk: 5.4%. Prior Study Comparison: 06/23/2018 Bilateral Screening Mammogram, [facility]. 07/16/2019 Bilateral Screening Mammogram, [facility]. 11/22/2020 Bilateral Screening Mammogram, [facility]. Tissue Density: The breast tissue is heterogeneously dense. This may lower the sensitivity of mammography. Findings: Analyzed By CAD. There is no suspicious group of microcalcifications or new suspicious mass in either breast. Overall Assessment: Benign, BI-RAD 2 Management: Screening Mammogram of both breasts in 1 year. A clinical breast exam by your physician is recommended on an annual basis and results should be correlated with mammographic findings. Electronically signed and approved by: Avery John M.D. Radiologis
== END | disposition home or self-care (01) ==
LOC: RADMAMWWP 17:09
PROVIDERS: ATTEND Family Medicine
DX: Z12.31 Encounter for screening mammogram for malignant neoplasm of breast (principal)
CPT/HCPCS: 77063; 77067

== ENCOUNTER → 2022-12-24 | Outpatient (CLI) | payer MEDICARE ==
--- NOTE | 2022-12-25 12:27 | MM ---
Reason for Exam: Screening (asymptomatic). Last screening mammogram was performed 12 month(s) ago. Patient History: Menarche at age 15. First Full-Term at age 22. Postmenopausal. Sister had breast cancer, age 78. Risk Values: Zarina 5 year model risk: 3.1%. NCI Lifetime model risk: 4.8%. Prior Study Comparison: 07/16/2019 Bilateral Screening Mammogram, [facility]. 11/22/2020 Bilateral Screening Mammogram, [facility]. 12/20/2021 Bilateral MG 3D screening mammo w/cad, [facility]. Tissue Density: The breast tissue is heterogeneously dense. This may lower the sensitivity of mammography. Findings: Analyzed By CAD. Benign-appearing vascular and linear calcifications in the right breast are redemonstrated. Occasional tiny benign-appearing round calcification in the left breast is redemonstrated. There is no suspicious group of microcalcifications or new suspicious mass in either breast. Overall Assessment: Benign, BI-RAD 2 Management: Screening Mammogram of both breasts in 1 year. . Patient should continue monthly self-breast exams. A clinical breast exam by your physician is recommended on an annual basis. This exam should not preclude additional follow-up of suspicious palpable abnormalities. Note on Zarina scores and lifetime risk: 1. A Zarina score greater than 3% is considered moderate risk. If this is the case, consider specialist referral to assess eligibility for a risk reducing agent. 2. If overall lifetime risk for the development of breast cancer is 20% or higher, the patient may qualify for future screening with alternating mammogram and breast MRI. Electronically signed and approved by: Ashish Rousseau M.D.
== END | disposition home or self-care (01) ==
LOC: RADMAMWWP 07:52
PROVIDERS: ATTEND Family Medicine
DX: Z12.31 Encounter for screening mammogram for malignant neoplasm of breast (principal); Z78.0 Asymptomatic menopausal state; Z80.3 Family history of malignant neoplasm of breast
CPT/HCPCS: 77063; 77067

== ENCOUNTER → 2023-02-10 | Outpatient (CLI) | payer MEDICARE ==
--- NOTE | 2023-02-10 16:32 | NM ---
EXAMINATION TYPE: NM bone scan whole body DATE OF EXAM: 02/10/2023 3:51 PM CLINICAL INDICATION:Female, 82 years old with history of S22.060S WEDGE COMPRESSION FRACTURE OF T7-T8 VERTE; COMPARISON: None TECHNIQUE: Intravenous administration 19.9 mCi Tc 99m MDP followed by multiple scintigraphic images o f the appendicular and axial skeleton. Images acquired 3 hours post injection. FINDINGS: Abnormal uptake within the spine at the level of T6 and T5. There is abnormal uptake within the left medial knee and also the right foot in the left first metatarsophalangeal joint and the left elbow. Physiologic radiotracer activity is demonstrated in the kidneys and bladder. IMPRESSION: 1. There is compatible with compression fractures of T6 and and possibly even some degree of fractur e T5. Degeneration changes are also seen throughout the lower lumbar spine. 2. Degeneration changes including Left medial knee severe osteoarthrosis changes correlate with plai n film radiographs as well as degeneration of the spine the right mid foot and left first digit metac arpal phalangeal joint.
== END | disposition home or self-care (01) ==
LOC: RADNMMAIN 10:14
PROVIDERS: ATTEND Physical Medicine & Rehabilitation
DX: M51.36 Other intervertebral disc degeneration, lumbar region (principal); M17.12 Unilateral primary osteoarthritis, left knee; M19.071 Primary osteoarthritis, right ankle and foot; M41.24 Other idiopathic scoliosis, thoracic region; M47.26 Other spondylosis with radiculopathy, lumbar region; M51.16 Intervertebral disc disorders with radiculopathy, lumbar region; S22.060S Wedge compression fracture of T7-T8 vertebra, sequela; S22.040S Wedge compression fracture of fourth thoracic vertebra, sequela; X58.XXXS Exposure to other specified factors, sequela
CPT/HCPCS: 78306; A9503

== ENCOUNTER → 2023-07-02 | Outpatient (CLI) | payer MEDICARE ==
--- NOTE | 2023-07-02 19:25 | BD ---
EXAMINATION TYPE: Axial Bone Density DATE OF EXAM: 07/02/2023 CLINICAL HISTORY: 82 years old Female. ICD-10 CODE: M85.80 OTH DISRD OF BONE DENSITY AND STRUCTURE, UN Height: 61.2 in Weight: 105 lbs FRAX RISK QUESTIONS: History of Fracture in Adulthood: fx of lumbar and thoracic spine age 82; rt wrist fx age 52; lt foot fx age 62 Secondary Osteoporosis: 3. Menopause before 45: age 44 Current Tobacco Use: yes RISK FACTORS HISTORY OF: Spine Fracture: yes l-spine and t-spine fx age 82 History of Wrist Fracture: rt wrist fx age 52 Active: yes Diet low in dairy products/other sources of calcium: yes Postmenopausal woman: age 44 MEDICATIONS: Additional Medications: vit d, heart meds EXAM MEASUREMENTS: Bone mineral densitometry was performed using the [employer] System. pt had thoracic and lumbar fxs age 82 Bone mineral density about the R hip (g/cm2): 0.660 Bone mineral density about the L hip (g/cm2): 0.644 T Score values are as follows: -----R Neck: -2.0 -----L Neck: -2.3 -----R Total: -2.8 -----L Total: -2.9 Z Score values are as follows: -----R Neck: 0.5 -----L Neck: 0.2 -----R Total: -0.3 -----L Total: -0.4 Bone mineral density has: Decreased -9.4% since study of: 11/22/2020 Bone mineral density about the L Wrist (g/cm2): 0.323 T Score values are as follows: -----Dist. R+U: -6.2 -----Prox. R+U: -4.6 -----Radius total: -5.8 Z Score values are as follows: -----Dist. R+U: -3.4 -----Prox. R+U: -1.8 -----Radius total: -3.1 Bone mineral density baseline FRAX%s: The graph provided illustrates a 22.5% chance for a major osteoporotic fx and a 10.6% chance for the hips probability for fx in 10 years time. IMPRESSION: Osteoporosis (T Score less than -2.5). There is increased fracture risk and therapy is usually indicated based on age. Re-Screen 1-2 years. NOTE: T-SCORE=SD OF THE YOUNG ADULT MEAN.
== END | disposition home or self-care (01) ==
LOC: RADBDWWP 14:46
PROVIDERS: ATTEND Family Medicine
DX: M81.0 Age-related osteoporosis without current pathological fracture (principal); M85.89 Other specified disorders of bone density and structure, multiple sites; Z78.0 Asymptomatic menopausal state
CPT/HCPCS: 77080

== ENCOUNTER → 2023-12-26 | Outpatient (CLI) | payer MEDICARE ==
--- NOTE | 2023-12-29 10:56 | MM ---
Reason for Exam: Screening (asymptomatic). Last screening mammogram was performed 12 month(s) ago. Patient History: Menarche at age 15. First Full-Term at age 22. Postmenopausal. Sister had breast cancer, age 78. Risk Values: Zarina 5 year model risk: 3.1%. NCI Lifetime model risk: 4.4%. Prior Study Comparison: 11/22/2020 Bilateral Screening Mammogram, [facility]. 12/20/2021 Bilateral MG 3D screening mammo w/cad, [facility]. 12/24/2022 Bilateral MG 3D screening mammo w/cad, [facility]. Tissue Density: The breasts are heterogeneously dense, which may obscure small masses. Findings: Analyzed By CAD. Right breast: There is no suspicious group of microcalcifications or new suspicious mass. Benign-appearing calcifications right breast. Left breast: There is no suspicious group of microcalcifications or new suspicious mass. Benign-appearing calcifications left breast. Overall Assessment: Negative, BI-RAD 1 Management: Screening Mammogram of both breasts in [address] [facility] will attempt to contact patient to return for supplemental views and ultrasound if indicated. Patient should continue monthly self-breast exams. A clinical breast exam by your physician is recommended on an annual basis. This exam should not preclude additional follow-up of suspicious palpable abnormalities. Note on Zarina scores and lifetime risk: 1. A Zarina score greater than 3% is considered moderate risk. If this is the case, consider specialist referral to assess eligibility for a risk reducing agent. 2. If overall lifetime risk for the development of breast cancer is 20% or higher, the patient may qualify for future screening with alternating mammogram and breast MRI. Electronically signed and approved by: Gómez Mcgregor DO
== END | disposition home or self-care (01) ==
LOC: RADMAMWWP 08:41
PROVIDERS: ATTEND Family Medicine
DX: Z12.31 Encounter for screening mammogram for malignant neoplasm of breast (principal); Z80.3 Family history of malignant neoplasm of breast; Z78.0 Asymptomatic menopausal state
CPT/HCPCS: 77063; 77067

== ENCOUNTER → 2024-04-29 | Outpatient (CLI) | payer MEDICARE ==
[2024-04-29 15:28] LABS: HCT 33.9 % (37.2-46.3); HGB 10.9 g/dL (12.0-15.0); MCH 34.4 pg (27.0-32.0); MCHC 32.2 g/dL (32.0-37.0); MCV 106.9 FL (80.0-97.0); Mean Platelet Volume 11.7 FL (9.5-12.2); NRBC Per 100 WBC 0 X 10*3/uL (0.00-0.01); Platelet Count 169 X 10*3/uL (140-440); RBC 3.17 X 10*6/uL (4.10-5.20); RDW 14.4 % (11.5-14.5); WBC 4.89 X 10*3/uL (4.50-10.00)
[2024-04-29 16:02] LABS: Basophils # (A) 0.03 X 10*3/uL (0.00-0.10); Basophils % (A) 0.6 %; Eosinophils # (A) 0.15 X 10*3/uL (0.04-0.35); Eosinophils % (A) 3.1 %; Lymphocytes # (A) 1.32 X 10*3/uL (0.90-5.00); Monocytes # (A) 0.39 X 10*3/uL (0.20-1.00); Neutrophils # (A) 2.99 X 10*3/uL (1.80-7.70); Neutrophils % (A) 61.1 %; RBC Morphology Normal (Normal)
[2024-04-29 18:29] LABS: ALT 13 U/L (8-44); AST 25 U/L (13-35); BUN/Creat Ratio 17.46 Ratio (12.00-20.00); Blood Urea Nitrogen 22.7 mg/dL (9.0-27.0); Calcium 9.2 mg/dL (8.7-10.3); Carbon Dioxide 24.9 mmol/L (21.6-31.8); Chloride 105 mmol/L (96-109); Chol/HDL Ratio 1.84 Ratio; Glucose 137 mg/dL (70-110); LDL Cholesterol,Calculated 49.7 mg/dL (0.0-131.0); Sodium 141 mmol/L (135-145)
== END | disposition home or self-care (01) ==
LOC: LABWHC1 10:19
PROVIDERS: ATTEND Family Medicine
DX: E78.00 Pure hypercholesterolemia, unspecified (principal); N18.30 Chronic kidney disease, stage 3 unspecified; E55.9 Vitamin D deficiency, unspecified
CPT/HCPCS: 36415; 80048; 80061; 82306; 84450; 84460; 85025

== ENCOUNTER → 2024-05-21 | Outpatient (CLI) | payer MEDICARE ==
[2024-05-21 18:30] LABS: Basophils # (A) 0.03 X 10*3/uL (0.00-0.10); Basophils % (A) 0.5 %; Eosinophils # (A) 0.19 X 10*3/uL (0.04-0.35); Eosinophils % (A) 3.3 %; HCT 31.1 % (37.2-46.3); Lymphocytes # (A) 1.93 X 10*3/uL (0.90-5.00); Lymphocytes % (A) 33.7 %; MCHC 32.2 g/dL (32.0-37.0); MCV 105.8 FL (80.0-97.0); Mean Platelet Volume 11.7 FL (9.5-12.2); Monocytes # (A) 0.61 X 10*3/uL (0.20-1.00); Monocytes % (A) 10.6 %; NRBC Per 100 WBC 0 X 10*3/uL (0.00-0.01); Neutrophils # (A) 2.96 X 10*3/uL (1.80-7.70); Neutrophils % (A) 51.7 %; Platelet Count 169 X 10*3/uL (140-440); RBC 2.94 X 10*6/uL (4.10-5.20); RDW 13.7 % (11.5-14.5); WBC 5.73 X 10*3/uL (4.50-10.00)
[2024-05-21 18:44] LABS: Protein, Total 6.5 g/dL (6.2-8.2)
[2024-05-21 19:08] LABS: % Iron Saturation 16.08 (12.00-45.00); Ferritin 17.6 ng/mL (10.0-291.0)
== END | disposition home or self-care (01) ==
LOC: LABWHC1 13:51
PROVIDERS: ATTEND Family Medicine
DX: D64.9 Anemia, unspecified (principal)
CPT/HCPCS: 36415; 82607; 82728; 82747; 83540; 83550; 84165; 85025

== ENCOUNTER → 2024-05-25 | Outpatient (CLI) | payer MEDICARE ==
[2024-05-25 18:49] LABS: Basophils # (A) 0.02 X 10*3/uL (0.00-0.10); Basophils % (A) 0.5 %; Eosinophils # (A) 0.15 X 10*3/uL (0.04-0.35); Eosinophils % (A) 3.6 %; HCT 29.9 % (37.2-46.3); HGB 9.6 g/dL (12.0-15.0); Lymphocytes # (A) 1.56 X 10*3/uL (0.90-5.00); Lymphocytes % (A) 37.1 %; MCH 33.9 pg (27.0-32.0); MCHC 32.1 g/dL (32.0-37.0); MCV 105.7 FL (80.0-97.0); Mean Platelet Volume 11.6 FL (9.5-12.2); Monocytes # (A) 0.44 X 10*3/uL (0.20-1.00); Monocytes % (A) 10.5 %; NRBC Per 100 WBC 0 X 10*3/uL (0.00-0.01); Neutrophils # (A) 2.02 X 10*3/uL (1.80-7.70); Neutrophils % (A) 48.1 %; Platelet Count 163 X 10*3/uL (140-440); RBC 2.83 X 10*6/uL (4.10-5.20); RDW 13.6 % (11.5-14.5)
[2024-05-25 19:50] LABS: Protein, Total 6.2 g/dL (6.2-8.2)
== END | disposition home or self-care (01) ==
LOC: LABWHC1 13:38
PROVIDERS: ATTEND Family Medicine
DX: R71.8 Other abnormality of red blood cells (principal)
CPT/HCPCS: 36415; 84165; 85025; 86334

== ENCOUNTER → 2024-10-25 | Outpatient (CLI) | payer MEDICARE ==
[2024-10-25 15:19] LABS: ALT 16 U/L (8-44); AST 25 U/L (13-35); Chol/HDL Ratio 1.88 Ratio; LDL Cholesterol,Calculated 53.9 mg/dL (0.0-131.0); VLDL Calculation 16.28 mg/dL (5.00-40.00)
== END | disposition home or self-care (01) ==
LOC: LABWHC1 08:16
PROVIDERS: ATTEND Internal Medicine Cardiovascular Disease
DX: E78.2 Mixed hyperlipidemia (principal)
CPT/HCPCS: 36415; 80061; 84450; 84460

== ENCOUNTER → 2024-12-10 | Outpatient (CLI) | payer MEDICARE ==
--- NOTE | 2024-12-10 10:49 | XR ---
EXAMINATION TYPE: XR lumbar spine 3V DATE OF EXAM: 12/10/2024 10:27 AM COMPARISON: CT to 01/14/2025 CLINICAL INDICATION: Female, 84 years old with history of M54.50 Low back pain; PHH, pain TECHNIQUE: 3 views FINDINGS: Degenerated convex scoliosis of the lumbar spine. 5 lumbar vertebral bodies. Moderate to severe degen erative disc disease especially along the size of cavity. The degree of curvature and osteopenia limi ts assessment of vertebral body heights. There may be a mild anterior wedge/superior endplate deformi ty at the T12 level. Trace grade 1 retrolisthesis L3-L4. Grade 1 anterolisthesis L4-L5. Advanced hype rtrophic facet arthropathy. IMPRESSION: 1. Degenerated dextroconvex scoliosis with moderate to severe degenerative disc disease and hypertrop hic facet arthropathy. 2. Degenerative grade 1 spondylolisthesis L3-L4 and L4-L5. 3. The degree of curvature and osteopenia limits assessment of vertebral body heights. There appears to be a mild superior endplate deformity at T12, not clearly seen on 09/02/2024 CT. Correlate for any f ocal pain at this level. [facility], Workstation: [id number], 12/10/2024 10:46 AM
== END | disposition home or self-care (01) ==
LOC: RADXRMAIN 10:12
PROVIDERS: ATTEND Family Medicine
DX: M51.360 Other intervertebral disc degeneration, lumbar region with discogenic back pain only (principal); M43.16 Spondylolisthesis, lumbar region; M85.88 Other specified disorders of bone density and structure, other site; M47.816 Spondylosis without myelopathy or radiculopathy, lumbar region; M41.86 Other forms of scoliosis, lumbar region
CPT/HCPCS: 72100

== ENCOUNTER → 2025-01-19 | Outpatient (CLI) | payer MEDICARE ==
--- NOTE | 2025-01-19 08:17 | MM ---
Reason for Exam: Screening (asymptomatic). Last mammogram was performed 1 year(s) and 1 month(s) ago. Patient History: Menarche at age 15. First Full-Term at age 22. Postmenopausal. Sister had breast cancer, age 78. Risk Values: Zarina 5 year model risk: 3.0%. NCI Lifetime model risk: 4.0%. Prior Study Comparison: 12/20/2021 Bilateral MG 3D screening mammo w/cad, [facility]. 12/24/2022 Bilateral MG 3D screening mammo w/cad, [facility]. 12/26/2023 Bilateral MG 3D screening mammo w/cad, [facility]. Tissue Density: The breasts are heterogeneously dense, which may obscure small masses. Findings: Analyzed By CAD. Right breast: There is no suspicious group of microcalcifications or new suspicious mass. Benign-appearing calcifications right breast. Left breast: There is no suspicious group of microcalcifications or new suspicious mass. Benign-appearing calcifications left breast. Overall Assessment: Benign, BI-RAD 2 Management: Screening Mammogram of both breasts in [address] [facility] will attempt to contact patient to return for supplemental views and ultrasound if indicated. Patient should continue monthly self-breast exams. A clinical breast exam by your physician is recommended on an annual basis. This exam should not preclude additional follow-up of suspicious palpable abnormalities. Note on Zarina scores and lifetime risk: 1. A Zarina score greater than 3% is considered moderate risk. If this is the case, consider specialist referral to assess eligibility for a risk reducing agent. 2. If overall lifetime risk for the development of breast cancer is 20% or higher, the patient may qualify for future screening with alternating mammogram and breast MRI. [facility], , 01/19/2025 8:14 AM. Electronically signed and approved by: Gómez Mcgregor DO
== END | disposition home or self-care (01) ==
LOC: RADMAMWWP 07:26
PROVIDERS: ATTEND Family Medicine
DX: Z12.31 Encounter for screening mammogram for malignant neoplasm of breast (principal); R92.333 Mammographic heterogeneous density, bilateral breasts; Z78.0 Asymptomatic menopausal state; Z80.3 Family history of malignant neoplasm of breast
CPT/HCPCS: 77063; 77067